=== PATIENT | male | born 1960 | race Caucasian/White ===

== ENCOUNTER → 2017-10-20 | Outpatient (CLI) | payer BC ==
--- NOTE | 2017-10-20 10:25 | US ---
EXAMINATION TYPE: US liver DATE OF EXAM: 10/20/2017 COMPARISON: NONE CLINICAL HISTORY: R74.8 Elevated liver. No pain, abn labs, NPO EXAM MEASUREMENTS: Liver Length: 15.7 cm Gallbladder Wall: 0.1 cm Right Kidney: 12.3 x 5.8 x 6.0 cm Limited exam due to patient body habitus Pancreas: Unremarkable. Tail obscured by overlying bowel gas Liver: Hepatic echotexture is hyperechoic with diminished visualization of the portal triads. This l imits evaluation for hepatic masses. Gallbladder: wnl Evidence for sonographic Carranza's sign: neg CBD: Obscured by overlying bowel gas Right Kidney: wnl IMPRESSION: 1. Limited exam due to patient body habitus. No evidence for cholelithiasis or acute cholecystitis al though the common bile duct is obscured by bowel gas. 2. Hyperechoic hepatic echotexture most commonly relates to hepatic steatosis.
== END | disposition home or self-care (01) ==
LOC: RADUSWWP 08:09
PROVIDERS: ATTEND Family Medicine
DX: R93.2 Abnormal findings on diagnostic imaging of liver and biliary tract (principal)
CPT/HCPCS: 76705

== ENCOUNTER → 2018-05-11 | Outpatient (CLI) | payer BC ==
--- NOTE | 2018-05-11 12:23 | CT ---
EXAMINATION TYPE: CT abdomen pelvis wo con DATE OF EXAM: 05/11/2018 COMPARISON: HISTORY: Left flank pain with difficulty urinating CT DLP: 1302.6 mGycm Automated exposure control for dose reduction was used. TECHNIQUE: Helical acquisition of images was performed from the lung bases through the pelvis. FINDINGS: LUNG BASES: No significant abnormality is appreciated. LIVER/GB: No significant abnormality is appreciated. PANCREAS: No significant abnormality is seen. SPLEEN: No significant abnormality is seen. ADRENALS: No significant abnormality is seen. KIDNEYS: No nephrolithiasis. There is mild left hydronephrosis. No renal stone or ureteral stone. No bladder calculi. Correlate for infection or recently passed stone URINARY BLADDER: No significant abnormality is seen. ADENOPATHY: None visualized. OSSEOUS STRUCTURES: Severe degenerative disc disease with vacuum disc L5-S1 grade 1 anterolisthesis. Bilateral spondylolysis of L5. BOWEL: Diverticulosis of the colon. Appendix normal. OTHER: Prostate is prominent in size with calcification. Fat-containing periumbilical hernia. Atheros clerotic change of the aorta. IMPRESSION: MILD LEFT HYDRONEPHROSIS WITH NO EVIDENCE OF RENAL OR URETERAL CALCULUS. CORRELATE FOR INFECTION OR R ECENTLY PASSED CALCULUS. COLONIC DIVERTICULOSIS.
== END | disposition home or self-care (01) ==
LOC: RADCTMAIN 11:59
PROVIDERS: ATTEND Physician Assistant
DX: N13.30 Unspecified hydronephrosis (principal); K57.30 Diverticulosis of large intestine without perforation or abscess without bleeding
CPT/HCPCS: 74176

== ENCOUNTER → 2020-04-04 | Outpatient (CLI) | payer BC ==
--- NOTE | 2020-04-04 09:57 | US ---
EXAMINATION TYPE: US prostate transrectal DATE OF EXAM: 04/04/2020 COMPARISON: NONE CLINICAL HISTORY: N41.1 Chronic prostatitis. Chronic prostatitis, pt states high PSA however lab valu es not available at time of exam This examination was performed using the transrectal probe. EXAM MEASUREMENTS: Gland Size: 5.0 x 4.2 x 5.5 Volume: 59 Predicted PSA: 7.1 Actual PSA (if available):Unknown Enlarged, heterogeneous prostate/ No definite mass visualized within periphery IMPRESSION: No suspicious appearing lesion noted. Correlate with actual PSA. Predicted PSA = volume x 0.12 ng/ml Calculated Volume = 0.5236 x L x W x H
== END | disposition home or self-care (01) ==
LOC: RADUSWWP 08:13
PROVIDERS: ATTEND Family Medicine
DX: N41.1 Chronic prostatitis (principal)
CPT/HCPCS: 76872

== ENCOUNTER → 2020-08-23 | Outpatient (CLI) | payer OTHER ==
--- NOTE | 2020-08-23 15:55 | US ---
EXAMINATION TYPE: US venous doppler duplex LE RT DATE OF EXAM: 08/23/2020 3:31 PM COMPARISON: NONE CLINICAL HISTORY: Loose body R knee M23.41, M23.91 Internal derangem. SIDE PERFORMED: right TECHNIQUE: The lower extremity deep venous system is examined utilizing real time linear array sonog ishan with graded compression, doppler sonography and color-flow sonography. VESSELS IMAGED: Common Femoral Vein Deep Femoral Vein Greater Saphenous Vein * Femoral Vein Popliteal Vein Small Saphenous Vein * Proximal Calf Veins (* superficial vessels) Right Leg: Negative for DVT Attempted to call 's office at time of exam, there was no answer. IMPRESSION: 1. Right lower extremity ultrasound negative for deep venous thrombosis.
== END | disposition home or self-care (01) ==
LOC: RADUSWWP 15:05
PROVIDERS: ATTEND Orthopaedic Surgery
DX: I80.3 Phlebitis and thrombophlebitis of lower extremities, unspecified (principal); M17.11 Unilateral primary osteoarthritis, right knee; M23.41 Loose body in knee, right knee; M23.91 Unspecified internal derangement of right knee; M25.561 Pain in right knee

== ENCOUNTER → 2020-09-07 | Outpatient (CLI) | payer OTHER ==
[2020-09-07 13:20] LABS: HCT 47.2 % (39.0-53.0); HGB 16.2 gm/dL (13.0-17.5); MCHC 34.4 g/dL (31.0-37.0); Mean Platelet Volume 7.9; Platelet Count 239 k/uL (150-450); RBC 4.91 m/uL (4.30-5.90); RDW 12.6 % (11.5-15.5); WBC 6.2 k/uL (3.8-10.6)
[2020-09-07 13:21] LABS: Appearance,Urine Clear (Clear); Bilirubin,Urine Negative (Negative); Blood,Urine Negative (Negative); Color,Urine Yellow; Glucose,Urine (UA) Negative (Negative); Ketones,Urine Negative (Negative); Leukocyte Esterase,Urine Negative (Negative); Nitrite,Urine Negative (Negative); PH, Urine 5.5 (5.0-8.0); Protein,Urine Negative (Negative); Specific Gravity,Urine 1.017 (1.001-1.035); Urobilinogen,Urine <2.0 mg/dL (<2.0)
[2020-09-07 13:28] LABS: INR 0.9 (<1.2); Partial Thromboplastin Time 23.7 sec (22.0-30.0); Prothrombin Time 9.9 sec (9.0-12.0)
[2020-09-07 13:30] LABS: ALT 43 U/L (4-49); AST 30 U/L (17-59); African American GFR (CKD) >90 (>60 ml/min/1.73 sqM); Albumin 4.2 g/dL (3.5-5.0); Alkaline Phosphatase 72 U/L (38-126); Anion Gap 4 mmol/L; Blood Urea Nitrogen 15 mg/dL (9-20); Calcium 9.3 mg/dL (8.4-10.2); Carbon Dioxide 30 mmol/L (22-30); Chloride 103 mmol/L (98-107); Glucose 93 mg/dL (74-99); Non-African American GFR(CKD) >90 (>60 ml/min/1.73 sqM); Potassium 4.1 mmol/L (3.5-5.1); Sodium 137 mmol/L (137-145); Total Bilirubin 0.9 mg/dL (0.2-1.3)
== END | disposition home or self-care (01) ==
LOC: LABPAT 11:34
PROVIDERS: ATTEND Orthopaedic Surgery
DX: Z01.818 Encounter for other preprocedural examination (principal); M17.11 Unilateral primary osteoarthritis, right knee
CPT/HCPCS: 36415; 80053; 81003; 85027; 85610; 85730; 87070; 93005

== ENCOUNTER 2020-09-24 10:43 | Day surgery (SDC) | payer OTHER ==
[2020-09-18 15:46] VITALS: BMI 35.2
[~2020-09-24 10:43] MED LIST: ACETAMINOPHEN TAB 500 MG TAB PO PRN; LACTATED RINGERS 1,000 ML IV SCH; LIDOCAINE 1% (10MG/ML) FOR IV START INTRADERMA PRN; MELOXICAM 7.5 MG TAB PO PRN; ONDANSETRON 4 MG/2 ML VIAL IVP PRN; ROPIVACAINE/EPI/CLONIDINE/KET 50 ML SYRINGE MISCELLANE PRN; TRANEXAMIC ACID 1,000 MG in SODIUM CHLORIDE 0.9% 100 ML IVPB PRN
[2020-09-24] MEDS ORDERED: MIDAZOLAM 2 MG/2 ML VIAL IV ONE (11:24)
[2020-09-24] MEDS ORDERED: ROPIVACAINE 0.2%-NS ON-Q PUMP 1,090 MG, EMPTY PAIN BALL 1 EACH MISCELLANE PRN (12:30)
--- NOTE | 2020-09-24 12:31 | P.ANPRN ---
Procedure Note - Anesthesia - Nerve Block Performed Right Adductor Canal Infusion Time Out Performed: Yes (1123) Date of Procedure: 09/24/20 Procedure Start Time: :24 Procedure Stop Time: :31 Location of Patient: PreOp Indication: Acute Post-Operative Pain, Requested by Surgeon Specifically requested for management of pain by DrMary: Hunter Wood Sedation Type: Sedate with meaningful contact maintained Preparation: Sterile Prep Position: Supine Catheter Depth at Skin (cm): 9 Catheter: Indwelling Needle Types: Pajunk Needle Gauge: 21 Ultrasound used to visualize needle placement: Yes Ultrasound used to observe medication spread: Yes Injectate: 0.5% Ropivacaine (see comment for volume) (20cc) Blood Aspirated: No Pain Paresthesia on Injection Noted: No Resistance on Injection: Normal Image Stored and Saved: Yes Events: Uneventful and Well Tolerated
[2020-09-24] MEDS ORDERED: HYDROmorphone 0.2 MG/1 ML SYRINGE IVP PRN (13:09)
[2020-09-24] MEDS ORDERED: TEMAZEPAM 15 MG CAP PO PRN (13:09)
[2020-09-24] MEDS ORDERED: hydrOXYzine pamoate 25 MG CAP PO PRN (13:09)
[2020-09-24] MEDS ORDERED: HYDROcodone/APAP 10-325MG 1 EACH TAB PO PRN (13:09)
[2020-09-24] MEDS ORDERED: MAGNESIUM HYDROXIDE 2,400 MG/10 ML CUP PO PRN (13:09)
[2020-09-24] MEDS ORDERED: HYDROmorphone 0.5 MG/0.5 ML SYRINGE IVP PRN (13:09)
[2020-09-24] MEDS ORDERED: bisacodyL 10 MG SUPP RECTAL PRN (13:09)
[2020-09-24] MEDS ORDERED: ONDANSETRON 4 MG/2 ML VIAL IVP PRN (13:09)
[2020-09-24] MEDS ORDERED: NA PHOS,M-B/NA PHOS,DI-BA 133 ML ENEMA RECTAL PRN (13:09)
[2020-09-24] MEDS ORDERED: HYDROmorphone 1 MG/ML 1 ML SYRINGE IVP PRN (13:09)
[2020-09-24] MEDS ORDERED: NALOXONE 0.4 MG/ML 1 ML VIAL IV PRN (13:09)
[2020-09-24] MEDS ORDERED: HYDROmorphone (PF) 1 MG/ML ONE (13:11)
[2020-09-24] MEDS ORDERED: fentaNYL (PF) 50 MCG/ML 2 ML AMP ONE (13:11)
[2020-09-24] MEDS ORDERED: TRANEXAMIC ACID 1,000 MG/10 ML VIAL ONE (13:11)
[2020-09-24] MEDS ORDERED: PROPOFOL 10 MG/ML 20 ML VIAL IV ONE (13:11)
[2020-09-24] MEDS ORDERED: LIDOCAINE 1% INJ 10MG/ML (20 ML MDV) ONE (13:11)
[2020-09-24] MEDS ORDERED: MIDAZOLAM 2 MG/2 ML VIAL ONE (13:11)
[2020-09-24] MEDS ORDERED: KETAMINE 10 MG/ML 20 ML VIAL ONE (13:11)
[2020-09-24] MEDS ORDERED: SODIUM CHLORIDE 0.9% 100 ML BAG ONE (13:11)
[2020-09-24] MEDS ORDERED: NEOSTIGMINE 1 MG/ML 10 ML VIAL ONE (13:11)
[2020-09-24] MEDS ORDERED: SUCCINYLCHOLINE CHLORIDE 100 MG/5 ML SYR IV ONE (13:11)
[2020-09-24] MEDS ORDERED: ROCURONIUM 10 MG/ML (5 ML VIAL) IV ONE (13:11)
[2020-09-24] MEDS ORDERED: hydrALAZINE HCL 20 MG/ML 1 ML VIAL ONE (13:11)
[2020-09-24] MEDS ORDERED: GLYCOPYRROLATE 0.2 MG/ML 2 ML VIAL ONE (13:11)
[2020-09-24] MEDS ORDERED: METOPROLOL TARTRATE 5 MG/5 ML VIAL IVP ONE (13:11)
[2020-09-24] MEDS ORDERED: LACTATED RINGERS 1,000 ML IV SCH (13:15)
[2020-09-24] MEDS ORDERED: ceFAZolin 3,000 MG in SODIUM CHLORIDE 0.9% IRRIGATIO 3,000 ML IRRIGATION ONE (13:16)
[2020-09-24] MEDS ORDERED: LACTATED RINGERS 1,000 ML IV ONE ×3 (14:55→16:40)
--- NOTE | 2020-09-24 15:13 | P.OP ---
Date of Procedure: 09/24/20 Procedure(s) Performed: PREOPERATIVE DIAGNOSIS: Right knee severe osteoarthritis with genu varum POSTOPERATIVE DIAGNOSIS: Right knee severe osteoarthritis with genu varum OPERATION: Right knee cemented total replacement arthroplasty. ANESTHESIA: Spinal ESTIMATED BLOOD LOSS: 100 ml. DOUBLE BACK OPERATOR: Hailee Barr PA-C (assistance with: patient positioning, retraction, exposure, hemostasis, leg positioning, implantation, irrigation, closure, dressing) COMPLICATIONS: None apparent. COMPONENTS IMPLANTED: Journey II BCS total knee system from [employer], [facility] preoperative computer templating INDICATIONS: Mr. Mcgee is a 60 year old male with a history of right knee osteoarthritis. The patient's knee is end-stage, and conservative management has failed. The operation of knee replacement has been discussed at length in the office, as well as potential risks and complications. These are inclusive of, but not limited to: bleeding, infection, scarring, discomfort, blood vessel and nerve damage, need for further surgery, failure to relieve symptoms, persistence, recurrence, or worsening of problems, loosening, dislocation, wear, blood clot, pulmonary embolism, , gait dysfunction, stiffness, and other risks as discussed in the office. The patient elects to proceed and the consent form has been signed. PROCEDURE: The patient was taken to the operating room and positioned on the operating room table in the supine position. Anesthesia was initiated. Care was taken to make sure that all pressure points were adequately padded. The operative lower extremity was prepped and draped in the usual aseptic fashion using ChloraPrep. Ioban drape was used for the case and the patient received intravenous antibiotics within one hour of the incision. A pneumotourniquet and leg lopez were used for the case. The limb was exsanguinated with an Esmarch bandage and the tourniquet was inflated to 250 mmHg. Time-out was called confirming the patient's identity, side, procedure and administration of antibiotics and tranexamic acid. The incision was then created midline directly over the right knee, carried down through skin and into the subcutaneous tissues and down to fascia. Full thickness subcutaneous medial flap was developed. Medial parapatellar arthrotomy was performed and the interior of the knee was inspected. There was end-stage osteoarthritis of the knee with a mild to moderate genu valgum type deformity. The fat pad was excised and proximal medial release on the tibia was completed using meticulous dissection and a curved osteotome. The anterior cruciate ligament was taken down. Note was made of significant attrition of the anterior and significant degenerative appearance of the cruciate ligaments. The exposure was excellent however, there appeared to be a venous tourniquet effect and therefore the tourniquet was deflated and reinflated prior to cementation. The knee was flexed 90 degrees and the patella was everted. The [employer] pre- made distal cutting block was attached and pinned into position. The planned cut was analyzed visually and with the alignment real and found to be satisfactory without the need for any adjustment. The oscillating saw was then used to make the distal femoral cut and make the alignment holes for the 5 in 1 block. This cut was confirmed to be flat with the flat end of an osteotome. The 5 in 1 block was then used to create the anterior posterior condylar resections and the chamfer cuts. The retractors were placed around the tibia and the tibial surface was addressed. The [employer] pre-made guide was placed onto the exposed tibial surface and pinned into position to renzo the rotational alignment. The alignment of the guide was checked for depth of plannned resection, slope, and varus valgus. Guide was confirmed to be in good position and the tibial cut was then created with protection of the posterior neurovascular structures and the collateral ligaments. The tibial cut surface was removed and sized. Spacer block technique was then used to confirm that the flexion and extension g aps were equal. Soft tissue releases and adjustment of the tibial and/or femoral cuts were made, as necessary, until the gaps were equal. This included release of the posterior cruciate ligament, which was excessively tight in this patient. Prior to placing trial components, anesthetic solution consisting of ropivicaine with epinephrine, ketorolac, and clonidine was injected carefully and methodically in a grid pattern using aspiration technique into the soft tissue around the knee circumferentially, starting with the deeper tissues first and progressing to fascia, and then finally the skin/subcutaneous tissue. Particular care was taken when injecting the posterior capsule, with avoidance of the midline posterior area. The trial components were inserted. The tibial tray was allowed to self center and the patella was noted to track very well. The position of the tibial component was marked and noted to be nearly exactly aligned with the pre-drilled holes from the [employer] guide. The tibia was then finished for a stemmed tibial component. Patellar resurfacing was performed using a reamer. The size of the required patellar component was estimated and the patellar surface was then reamed down to a residual thickness which would recreate the [place] thickness with the component. The exact placement of the patellar component was adjusted for position based on preoperative x-rays and intraoperative findings. Trial components were removed and the limb was exsanguinated with an Esmarch bandage. The tourniquet was inflated to 300 mmHg. The cut surfaces of the bone were pulse lavaged thoroughly and dried. Cement was mixed on the back table and applied to the final components. Cement was then applied to the tibial surface and pressurized into the surface using finger pressurization technique. The tibial component was then applied and excess cement was removed after it was impacted securely and noted to be flush with the cut surface. In similar fashion, the cement was applied to the cut femoral surface, pressurized in using finger pressurization and the component was impacted into place. Excess cement was removed. The polyethylene spacer was then implanted and locked into position. The patellar component was then applied in similar technique and a patellar clamp was used to hold the patella in place as the cement hardened. Once the cement had fully hardened, the knee was reinspected. Any other cement extrusion was removed and final kinematic testing showed range of motion from 0 to 130 degrees with excellent stability, both medially and laterally and appropriate alignment of the leg. Patellar tracking was excellent. The knee was then thoroughly pulse lavaged with normal saline. The tourniquet was deflated and hemostasis was obtained with electrocautery and IV tranexamic acid, 1 g given at the start of the operation and 1 g at the start of closure. Total tourniquet time for the case was approximately 30 minutes. Closure was with #2 Ethibond in the fascia/capsule and supplemented with #2 Quill, 2-0 Vicryl suture was used for the subcutaneous tissues and 3-0 Quill for the skin. Dermabond/Steri-Strips were then applied. A lightly compressive dressing was applied using Webril and an Robert wrap. The patient was then transferred to stretcher and taken to the recovery room in stable condition. Sponge and needle counts were correct.
[2020-09-24] MEDS: HYDROmorphone 0.5 MG/0.5 ML SYRINGE IVP PRN ×2 (15:30→15:47)
[2020-09-24] MEDS ORDERED: LABETALOL SYRINGE 5 MG/ML IVP ONE ×2 (15:50→16:00)
--- NOTE | 2020-09-24 15:53 | XR ---
EXAMINATION TYPE: XR knee limited RT DATE OF EXAM: 09/24/2020 COMPARISON: None HISTORY: Postop knee TECHNIQUE: Three-view right knee FINDINGS: Tibial and femoral components of in place. No acute fractures or dislocations are evident. Soft tissue postsurgical changes are noted. No joint effusion is evident. IMPRESSION: 1. No acute fracture post right knee replacement
[2020-09-24 16:49] VITALS: RESP 16
[2020-09-24] MEDS ORDERED: ASPIRIN 81 MG PO SCH (21:00)
[2020-09-24] MEDS ORDERED: SENNOSIDES-DOCUSATE SODIUM 1 EACH TAB PO SCH (21:00)
[2020-09-24] MEDS ORDERED: LATANOPROST 0.005% OPHTH DROPS 2.5 ML BTL BOTH EYES SCH (21:15)
[2020-09-24 22:02] VITALS: BP 152/90; PULSE 78; TEMP 97.6
[2020-09-25] MEDS ORDERED: LISINOPRIL-HCTZ 20-12.5 MG 1 EACH TAB PO SCH (09:00)
[2020-09-25] MEDS ORDERED: MELOXICAM 7.5 MG TAB PO SCH (09:00)
== END 2020-09-24 22:16 | disposition home or self-care (01) ==
LOC: OR 10:43 → 4SSUR 15:38 → OR 22:16
PROVIDERS: ATTEND Orthopaedic Surgery
DX: M17.11 Unilateral primary osteoarthritis, right knee (principal); M21.061 Valgus deformity, not elsewhere classified, right knee; I10 Essential (primary) hypertension; Z87.891 Personal history of nicotine dependence; Z79.899 Other long term (current) drug therapy
CPT/HCPCS: 64448; 76942; 73560; 27447; C1713; C1776; J2250; J0360; J2710; J0690 ×2; J2405; J2001; J3010; J1170 ×2; J0330; J2704; J2795; 88300

== ENCOUNTER → 2021-08-14 | Outpatient (CLI) | payer OTHER ==
--- NOTE | 2021-08-14 16:09 | CT ---
EXAMINATION TYPE: CT abdomen pelvis w con DATE OF EXAM: 08/14/2021 COMPARISON: 05/11/2018, ultrasound 08/12/2021 HISTORY: abdominal pain, renal mass CT DLP: 1847 mGycm Automated exposure control for dose reduction was used. CONTRAST: CT scan of the abdomen pelvis is performed with IV Contrast, patient injected with 100 mL of Isovue 3 00. FINDINGS- Small hiatal hernia. Lung bases are clear. Lobulation involving the mid torsion of the right kidney s table dating back to 2018 likely representing a dromedary hump with tiny 3 mm hypodensity statistical ly related to tiny additional cyst. No hydronephrosis or nephrolithiasis. Bowel gas pattern nonspecific. There is changes of diverticulosis but no CT evidence of diverticuliti s. Prostate is enlarged with calcification. Bladder is limited due to incomplete distention. No free fluid or free air. Hypertrophic and degenerative changes of the spine. Grade 1 anterolisthesis of L5 on S1. IMPRESSION- 1. 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 Delayed imaging is not carried into the pelvis and therefore whether or not there is presence of an ectopic insertion of the ureter is unable to be determined.
== END | disposition home or self-care (01) ==
LOC: RADCTMAIN 13:33
PROVIDERS: ATTEND Family Medicine
DX: N28.89 Other specified disorders of kidney and ureter (principal)
CPT/HCPCS: 74177; Q9967

== ENCOUNTER 2022-05-25 11:48 | Inpatient (IN) | payer OTHER ==
[2022-05-25] MEDS ORDERED: SODIUM CHLORIDE 0.9% 1,000 ML IV STA (12:20)
[2022-05-25] MEDS ORDERED: ACETAMINOPHEN TAB 500 MG TAB PO STA (12:20)
--- NOTE | 2022-05-25 12:22 | ED ---
General Adult HPI - General Chief complaint: Abdominal Pain Stated complaint: fever/chills, poss infection Time Seen by Provider: 05/25/22 12:06 Source: patient Mode of arrival: ambulatory Limitations: no limitations - History of Present Illness Initial comments: Dictation was produced using [employer] dictation software. please excuse any grammatical, word or spelling errors. Chief Complaint: 62-year-old male past medical history of chronic prostate infection presents to the ER for fever, nausea, vomiting. History of Present Illness: 62-year-old male who states that over the last 24-48 hours she has been feeling worse. He describes his symptoms as weakness, constitutional symptoms, fever. Patient is dealing with a bout of prostatitis. Patient states that he's been having bouts of intermittent prostatitis since 2017. His urine infection has been managed by his primary care doctor. He's been on ciprofloxacin for several weeks now. Patient also having some mild runny nose. No sore throat. He does have a dry cough. He denies any abdominal pain. Denies any history of abdominal surgery. No diarrhea. Denies any urin hamilton symptoms at this time. The ROS documented in this emergency department record has been reviewed and confirmed by me. Those systems with pertinent positive or negative responses have been documented in the HPI. All other systems are other negative and/or noncontributory. PHYSICAL EXAM: General Impression: Alert and oriented x3, not in acute distress HEENT: Normocephalic atraumatic, extra-ocular movements intact, pupils equal and reactive to light bilaterally, mucous membranes moist. Cardiovascular: Heart regular rate and rhythm Chest: Able to complete full sentences, no retractions, no tachypnea Abdomen: abdomen soft, non-tender, non-distended, no organomegaly Musculoskeletal: Pulses present and equal in all extremities, no peripheral edema Motor: no focal deficits noted Neurological: CN II-XII grossly intact, no focal motor or sensory deficits noted Skin: Intact with no visualized rashes Psych: Normal affect and mood ED course: 62-year-old male presents emergency department for monitor days of constitutional symptoms. He is dealing with a complex urinary infection that he describes as prostatitis. Vital signs upon arrival shows temperature 100.6, rest of vital signs within acceptable limits. Abdomen evaluation obtained. No leukocytosis. Metabolic panel is within acceptable limits. Urinalysis positive for UTI with blood cell count of 35. Pending viral panel. Patient reevaluated bedside states he feels improved after having given Tylenol. He does have some flank pain. Concerns of pyelonephritis. Given patient's failed outpatient treatment he'll be admitted with consultation to urology infectious disease. Admitted to [facility]. - Related Data Home Medications Medication Instructions Recorded Confirmed Lisinopril-Hctz 20-12.5 mg 1 tab PO QAM 09/18/20 09/24/20 [Zestoretic 20-12.5] Travoprost [Travatan Z 0.004%] 1 drop BOTH EYES HS 09/18/20 09/24/20 Allergies Allergy/AdvReac Type Severity Reaction Status Date / Time No Known Allergies Allergy Verified 05/25/22 14:13 Review of Systems ROS Statement: Those systems with pertinent positive or pertinent negative responses have been documented in the HPI. ROS Other: All systems not noted in ROS Statement are negative. Past Medical History Past Medical History: Hypertension Additional Past Medical History / Comment(s): Prostate History of Any Multi-Drug Resistant Organisms: None Reported Past Surgical History: Orthopedic Surgery Past Psychological History: No Psychological Hx Reported Smoking Status: Never smoker Past Alcohol Use History: Occasional Past Drug Use History: Marijuana General Exam Limitations: no limitations Course Vital Signs 05/25/22 05/25/22 12:05 13:23 Temperature 100.6 F H Pulse Rate 87 86 Respiratory 24 18 Rate Blood Pressure 157/94 O2 Sat by Pulse 99 97 Oximetry Medical Decision Making - Lab Data Result diagrams: 05/25/22 13:16 05/25/22 13:16 Lab Results 05/25/22 05/25/22 05/25/22 Range/Units 13:16 13:16 13:16 WBC 10.3 (3.8-10.6) k/uL RBC 4.08 L (4.30-5.90) m/uL Hgb 13.6 (13.0-17.5) gm/dL Hct 38.1 L (39.0-53.0) % MCV 93.3 (80.0-100.0) fL MCH 33.3 (25.0-35.0) pg MCHC 35.7 (31.0-37.0) g/dL RDW 12.5 (11.5-15.5) % Plt Count 197 (150-450) k/uL MPV 8.3 Neutrophils % 84 % Lymphocytes % 6 % Monocytes % 8 % Eosinophils % 1 % Basophils % 0 % Neutrophils # 8.7 H (1.3-7.7) k/uL Lymphocytes # 0.6 L (1.0-4.8) k/uL Monocytes # 0.8 (0-1.0) k/uL Eosinophils # 0.1 (0-0.7) k/uL Basophils # 0.0 (0-0.2) k/uL Sodium 134 L (137-145) mmol/L Potassium 3.5 (3.5-5.1) mmol/L Chloride 100 (98-107) mmol/L Carbon Dioxide 25 (22-30) mmol/L Anion Gap 9 mmol/L BUN 14 (9-20) mg/dL Creatinine 0.69 (0.66-1.25) mg/dL Est GFR (CKD-EPI)AfAm >90 (>60 ml/min/1.73 sqM) Est GFR (CKD-EPI)NonAf >90 (>60 ml/min/1.73 sqM) Glucose 164 H (74-99) mg/dL Plasma Lactic Acid Mark 1.1 (0.7-2.0) mmol/L Calcium 8.0 L (8.4-10.2) mg/dL Magnesium 1.9 (1.6-2.3) mg/dL Total Bilirubin 0.6 (0.2-1.3) mg/dL AST 22 (17-59) U/L ALT 31 (4-49) U/L Alkaline Phosphatase 71 (38-126) U/L Total Protein 5.9 L (6.3-8.2) g/dL Albumin 3.6 (3.5-5.0) g/dL Lipase 73 (23-300) U/L Urine Color Urine Appearance (Clear) Urine pH (5.0-8.0) Ur Specific [place] (1.001-1.035) Urine Protein (Negative) Urine Glucose (UA) (Negative) Urine Ketones (Negative) Urine Blood (Negative) Urine Nitrite (Negative) Urine Bilirubin (Negative) Urine Urobilinogen (<2.0) mg/dL Ur Leukocyte Esterase (Negative) Urine WBC (0-5) /hpf Ur Squamous Epith Cells (0-4) /hpf Amorphous Sediment (None) /hpf Urine Bacteria (None) /hpf Urine Mucus (None) /hpf 05/25/22 Range/Units 13:25 WBC (3.8-10.6) k/uL RBC (4.30-5.90) m/uL Hgb (13.0-17.5) gm/dL Hct (39.0-53.0) % MCV (80.0-100.0) fL MCH (25.0-35.0) pg MCHC (31.0-37.0) g/dL RDW (11.5-15.5) % Plt Count (150-450) k/uL MPV Neutrophils % % Lymphocytes % % Monocytes % % Eosinophils % % Basophils % % Neutrophils # (1.3-7.7) k/uL Lymphocytes # (1.0-4.8) k/uL Monocytes # (0-1.0) k/uL Eosinophils # (0-0.7) k/uL Basophils # (0-0.2) k/uL Sodium (137-145) mmol/L Potassium (3.5-5.1) mmol/L Chloride (98-107) mmol/L Carbon Dioxide (22-30) mmol/L Anion Gap mmol/L BUN (9-20) mg/dL Creatinine (0.66-1.25) mg/dL Est GFR (CKD-EPI)AfAm (>60 ml/min/1.73 sqM) Est GFR (CKD-EPI)NonAf (>60 ml/min/1.73 sqM) Glucose (74-99) mg/dL Plasma Lactic Acid Mark (0.7-2.0) mmol/L Calcium (8.4-10.2) mg/dL Magnesium (1.6-2.3) mg/dL Total Bilirubin (0.2-1.3) mg/dL AST (17-59) U/L ALT (4-49) U/L Alkaline Phosphatase (38-126) U/L Total Protein (6.3-8.2) g/dL Albumin (3.5-5.0) g/dL Lipase (23-300) U/L Urine Color Yellow Urine Appearance Clear (Clear) Urine pH 5.0 (5.0-8.0) Ur Specific [place] 1.024 (1.001-1.035) Urine Protein 1+ H (Negative) Urine Glucose (UA) Negative (Negative) Urine Ketones Negative (Negative) Urine Blood Negative (Negative) Urine Nitrite Negative (Negative) Urine Bilirubin Negative (Negative) Urine Urobilinogen <2.0 (<2.0) mg/dL Ur Leukocyte Esterase Moderate H (Negative) Urine WBC 35 H (0-5) /hpf Ur Squamous Epith Cells 1 (0-4) /hpf Amorphous Sediment Rare H (None) /hpf Urine Bacteria Rare H (None) /hpf Urine Mucus Few H (None) /hpf Disposition Clinical Impression: UTI (urinary tract infection), Pyelonephritis Disposition: ADMITTED IP TO THIS HOSP Condition: Fair Referrals: Garfield Moss MD [Primary Care Provider] - 1-2 days Decision Time: 14:15
[2022-05-25 13:31] LABS: Basophils % (A) 0 %; Eosinophils # (A) 0.1 k/uL (0-0.7); Eosinophils % (A) 1 %; HCT 38.1 % (39.0-53.0); HGB 13.6 gm/dL (13.0-17.5); Lymphocytes # (A) 0.6 k/uL (1.0-4.8); Lymphocytes % (A) 6 %; MCH 33.3 pg (25.0-35.0); MCHC 35.7 g/dL (31.0-37.0); MCV 93.3 fL (80.0-100.0); Mean Platelet Volume 8.3; Monocytes # (A) 0.8 k/uL (0-1.0); Monocytes % (A) 8 %; Neutrophils # (A) 8.7 k/uL (1.3-7.7); Neutrophils % (A) 84 %; Platelet Count 197 k/uL (150-450); RBC 4.08 m/uL (4.30-5.90); RDW 12.5 % (11.5-15.5); WBC 10.3 k/uL (3.8-10.6)
[2022-05-25 13:45] LABS: ALT 31 U/L (4-49); AST 22 U/L (17-59); African American GFR (CKD) >90 (>60 ml/min/1.73 sqM); Albumin 3.6 g/dL (3.5-5.0); Alkaline Phosphatase 71 U/L (38-126); Anion Gap 9 mmol/L; Blood Urea Nitrogen 14 mg/dL (9-20); Carbon Dioxide 25 mmol/L (22-30); Chloride 100 mmol/L (98-107); Glucose 164 mg/dL (74-99); Lipase 73 U/L (23-300); Magnesium 1.9 mg/dL (1.6-2.3); Non-African American GFR(CKD) >90 (>60 ml/min/1.73 sqM); Potassium 3.5 mmol/L (3.5-5.1); Sodium 134 mmol/L (137-145); Total Bilirubin 0.6 mg/dL (0.2-1.3); Total Protein 5.9 g/dL (6.3-8.2)
[2022-05-25 13:47] LABS: Amorphous Sediment,Urine Rare /hpf; Appearance,Urine Clear (Clear); Bacteria,Urine Rare /hpf; Bilirubin,Urine Negative (Negative); Blood,Urine Negative (Negative); Color,Urine Yellow; Glucose,Urine (UA) Negative (Negative); Ketones,Urine Negative (Negative); Leukocyte Esterase,Urine Moderate (Negative); Mucus,Urine Few /hpf; Nitrite,Urine Negative (Negative); Protein,Urine 1+ (Negative); Specific Gravity,Urine 1.024 (1.001-1.035); Squamous Epithelial Cell,Urine 1 /hpf (0-4); Urobilinogen,Urine <2.0 mg/dL (<2.0); WBC,Urine 35 /hpf (0-5)
[2022-05-25] MEDS ORDERED: cefTRIAXone IN SWFI 1,000 MG/10 ML SYRINGE IVP STA (14:08)
[2022-05-25] MEDS ORDERED: NALOXONE 0.4 MG/ML 1 ML VIAL IV PRN (14:12)
[2022-05-25] MEDS ORDERED: ONDANSETRON 4 MG/2 ML VIAL IVP PRN (14:12)
[2022-05-25] MEDS ORDERED: LEVOFLOXACIN 750MG-D5W PMX 750 MG in DEXTROSE/WATER 1 150ML.BAG IVPB ONE (14:30)
[2022-05-25] MEDS: SODIUM CHLORIDE 0.9% 1,000 ML IV SCH (14:34)
[2022-05-25] MEDS ORDERED: TAMSULOSIN 0.4 MG CAP.ER.24H PO STA (14:48)
--- NOTE | 2022-05-25 14:52 | P.HPIM ---
History of Present Illness H&P Date: 05/25/22 History of Presenting Illness: Patient is a very pleasant 62-year-old male with a past medical history of recurrent prostatitis since 2017 and hypertension. Patient reports he has been under treatment of [facility] and by his primary care provider Dr. Moss and recently started back on ciprofloxacin almost 3 weeks ago secondary to recurrent chronic bacterial prostatitis. Patient reports despite treatment for recurrent infection his symptoms of urinary retention and inability to initiate a stream have significantly worsened. He presented to the emergency department today with a chief complaint of fever, nausea, and vomiting along with his urinary complaints. In addition pt reports increased lower back pain (consistent with his recurrent bacterial prostatitis episodes), generalized fatigue and body aches. He denies having any dizziness, lightheade dness, chest pain, palpitations, abdominal pain or discomfort, suprapubic pain, or flank pain Upon arrival to our facility patient had oral temp of 100.6F. CBC showing no significant abnormalities with WBC count of 10.3. CMP revealed mild hyponatremia with sodium of 134 otherwise no abnormalities. Lactic acid 1.1. Urinalysis was positive for infection with 35 urine WBCs. Influenza A, influenza B, RSV, and Covid PCR was negative. Urine culture sent for analysis and patient was given 1 dose of Rocephin in the emergency department. Patient being admitted under our services with consultation to urology and infectious disease. Review of systems: Pertinent positives and negatives as discussed in HPI, a complete review of systems was performed and all other systems are negative. Physical exam: Vital signs reviewed and stable. General: Nontoxic, no distress and appears stated age. Obese. Derm: Skin warm and dry, normal coloration for ethnicity. Head: Atraumatic, normocephalic and symmetric. Eyes: EOMs intact, no lid lag, and anicteric sclera Mouth: no lip lesions, mucus membranes moist Cardiovascular: regular rate and rhythm with normal S1S2, no murmur, positive posterior tibial pulses bilaterally, and cap refill < 2 seconds. Lungs: Respirations even, regular, and unlabored on room air. Lungs CTA bilaterally, no rhonchi, no rales, no wheezing, and no accessory muscle usage. Abdominal: soft, nontender to palpation, no guarding, no appreciable organomegaly. No CVA tenderness. Ext: ROM intact. No gross muscle atrophy, no edema, no contractures Neuro: Speech clear, face symmetrical and CN II-XII grossly intact with no noted focal neuro deficits Psych: Alert and oriented to person, place, time, and situation. Appropriate and pleasant affect. Assessment and Plan of Care: Recurrent chronic bacterial prostatitis Urinary tract infection -IV antibiotics: Levaquin 750 mg daily -Consult to urology -Consult infectious disease -Follow up on urine culture and sensitivity report -Bladder management with bladder scanning as needed to monitor for postvoid residual -Increase Flomax 0.8 mg daily pending further recommendations from urology -Tylenol as needed for pain/fever Hypertension -Monitor vital signs and continue daily medication regimen with lisinopril/HCTZ CODE STATUS: Full code DVT prophylaxis: heparin Discussed with: patient and his Anticipated discharge date: 1-[address]: home A total of 45 minutes was spent on the care of this complex patient more than 50% of the time was spent in counseling and care coordination. I reviewed the documentation as provided by the NICK above, who is the original author of this note. I agree with the documented assessment and plan, with the following changes: none Past Medical History Past Medical History: Hypertension Additional Past Medical History / Comment(s): Prostate History of Any Multi-Drug Resistant Organisms: None Reported Past Surgical History: Orthopedic Surgery Past Psychological History: No Psychological Hx Reported Smoking Status: Never smoker Past Alcohol Use History: Occasional Past Drug Use History: Marijuana Medications and Allergies Home Medications Medication Instructions Recorded Confirmed Type Lisinopril-Hctz 20-12.5 mg 1 tab PO DAILY 09/18/20 05/25/22 History [Zestoretic 20-12.5] Travoprost [Travatan Z 0.004%] 1 drop BOTH EYES HS 09/18/20 05/25/22 History Ascorbic Acid [Vitamin C] 500 mg PO DAILY 05/25/22 05/25/22 History Cinnamon Bark [Cinnamon] 500 mg PO DAILY 05/25/22 05/25/22 History Ciprofloxacin HCl [Cipro] 750 mg PO BID 05/25/22 05/25/22 History Cyanocobalamin [Vitamin B-12] 500 mcg PO DAILY 05/25/22 05/25/22 History Tamsulosin [Flomax] 0.4 mg PO DAILY 05/25/22 05/25/22 History Zinc Gluconate [Zinc] 50 mg PO DAILY 05/25/22 05/25/22 History Allergies Allergy/AdvReac Type Severity Reaction Status Date / Time No Known Allergies Allergy Verified 05/25/22 14:13 Physical Exam Osteopathic Statement: *. No significant issues noted on an osteopathic struc tural exam other than those noted in the History and Physical/Consult. Vitals: Vital Signs Temp Pulse Resp BP Pulse Ox 05/25/22 13:23 86 18 157/94 97 05/25/22 12:05 100.6 F H 87 24 99 Intake and Output 05/24/22 05/25/22 05/25/22 22:59 06:59 14:59 Other: Weight 122.47 kg Results CBC & Chem 7: 05/25/22 13:16 05/25/22 13:16 Labs: Abnormal Lab Results - Last 24 Hours (Table) 05/25/22 05/25/22 05/25/22 Range/Units 13:16 13:16 13:25 RBC 4.08 L (4.30-5.90) m/uL Hct 38.1 L (39.0-53.0) % Neutrophils # 8.7 H (1.3-7.7) k/uL Lymphocytes # 0.6 L (1.0-4.8) k/uL Sodium 134 L (137-145) mmol/L Glucose 164 H (74-99) mg/dL Calcium 8.0 L (8.4-10.2) mg/dL Total Protein 5.9 L (6.3-8.2) g/dL Urine Protein 1+ H (Negative) Ur Leukocyte Esterase Moderate H (Negative) Urine WBC 35 H (0-5) /hpf Amorphous Sediment Rare H (None) /hpf Urine Bacteria Rare H (None) /hpf Urine Mucus Few H (None) /hpf
[2022-05-25] MEDS: HEPARIN SODIUM,PORCINE/PF 5,000 UNIT/0.5 ML SYRINGE SQ SCH ×2 (15:08→23:55)
[2022-05-25] MEDS: LATANOPROST 0.005% OPHTH DROPS 2.5 ML BTL BOTH EYES SCH (20:48)
[2022-05-25] MEDS: ACETAMINOPHEN TAB 325 MG TAB PO PRN (20:48)
--- NOTE | 2022-05-25 22:24 | P.CONS ---
History of Present Illness - Reason for Consult Consult date: 05/25/22 - History of Present Illness Patient is a 62-year-old male with a past medical history significant for recurrent episodes of prostatitis patient mention has been dealing with this since 2018 and has been on multiple courses of antibiotic has been evaluated by multiple urologist patient is a presenting to the [facility] ER concerning for fever nausea vomiting and did have a increasing lower back pain generalized fatigue also complaining of some difficulty urination but denies having any burning or hematuria with the symptom the patient was evaluated by ER physician on arrival to the ER patient did have a fever 100.6 F patient did have a normal white count with a left shift kidney function has been normal patient was positive for influenza and COVID testing was negative patient started on Levaquin 750 mg daily and did receive a dose of Rocephin in the ER patient was also on oral Cipro for about a month before his symptoms got worse infectious disease was consulted for further management of antibiotic therapy Past Medical History Past Medical History: Hypertension Additional Past Medical History / Comment(s): Prostate History of Any Multi-Drug Resistant Organisms: None Reported Past Surgical History: Orthopedic Surgery Past Psychological History: No Psychological Hx Reported Smoking Status: Never smoker Past Alcohol Use History: Occasional Past Drug Use History: Marijuana - Past Family History Father Family Medical History: Diabetes Mellitus, Myocardial Infarction ([place]) Additional Family Medical History / Comment(s): Father is Mother Additional Family Medical History / Comment(s): Parkinsons Medications and Allergies Home Medications Medication Instructions Recorded Confirmed Type Lisinopril-Hctz 20-12.5 mg 1 tab PO DAILY 09/18/20 05/25/22 History [Zestoretic 20-12.5] Travoprost [Travatan Z 0.004%] 1 drop BOTH EYES HS 09/18/20 05/25/22 History Ascorbic Acid [Vitamin C] 500 mg PO DAILY 05/25/22 05/25/22 History Cinnamon Bark [Cinnamon] 500 mg PO DAILY 05/25/22 05/25/22 History Ciprofloxacin HCl [Cipro] 750 mg PO BID 05/25/22 05/25/22 History Cyanocobalamin [Vitamin B-12] 500 mcg PO DAILY 05/25/22 05/25/22 History Tamsulosin [Flomax] 0.4 mg PO DAILY 05/25/22 05/25/22 History Zinc Gluconate [Zinc] 50 mg PO DAILY 05/25/22 05/25/22 History Allergies Allergy/AdvReac Type Severity Reaction Status Date / Time No Known Allergies Allergy Verified 05/25/22 14:13 Physical Exam Vitals: Vital Signs Temp Pulse Resp BP Pulse Ox 05/25/22 14:31 78 18 143/86 93 L 05/25/22 13:23 86 18 157/94 97 05/25/22 12:05 100.6 F H 87 24 99 Intake and Output 05/24/22 05/25/22 05/25/22 22:59 06:59 14:59 Other: Weight 122.47 kg Results CBC & Chem 7: 05/25/22 13:16 05/25/22 13:16 Labs: Abnormal Lab Results - Last 24 Hours (Table) 05/25/22 05/25/22 05/25/22 Range/Units 13:16 13:16 13:25 RBC 4.08 L (4.30-5.90) m/uL Hct 38.1 L (39.0-53.0) % Neutrophils # 8.7 H (1.3-7.7) k/uL Lymphocytes # 0.6 L (1.0-4.8) k/uL Sodium 134 L (137-145) mmol/L Glucose 164 H (74-99) mg/dL Calcium 8.0 L (8.4-10.2) mg/dL Total Protein 5.9 L (6.3-8.2) g/dL Urine Protein 1+ H (Negative) Ur Leukocyte Esterase Moderate H (Negative) Urine WBC 35 H (0-5) /hpf Amorphous Sediment Rare H (None) /hpf Urine Bacteria Rare H (None) /hpf Urine Mucus Few H (None) /hpf Assessment and Plan Plan: 1patient with a complicated history of recurrent prostatitis in this patient symptom has been going on for the last 4 years and has been on multiple courses of antibiotic recently on oral Cipro likely representing a quinolone resistant pathogen. 2discontinue Levaquin and start the patient Rocephin 2 g daily. 3we will obtain a CT of the pelvis with contrast to better define underlying pathology admission evidence of any prostatic abscess. 4gentle IV fluid. 5obtain inflammatory markers. We will follow on clinical condition and cultures to further adjust medication if needed Thank you for this consultation will follow this patient along with you Time with Patient: Greater than 30
[2022-05-26] MEDS: IOPAMIDOL CONTRAST (ORAL USE) VIAL PO PRN ×2 (08:26→09:27)
[2022-05-26] MEDS: ASCORBIC ACID 500 MG TAB PO SCH (08:27)
[2022-05-26] MEDS: ZINC SULFATE 220 MG CAP PO SCH (08:27)
[2022-05-26] MEDS: TAMSULOSIN 0.4 MG CAP.ER.24H PO SCH (08:27)
[2022-05-26] MEDS: CYANOCOBALAMIN 500 MCG TAB PO SCH (08:27)
[2022-05-26] MEDS: LISINOPRIL-HCTZ 20-12.5 MG 1 EACH TAB PO SCH (08:28)
[2022-05-26] MEDS: HEPARIN SODIUM,PORCINE/PF 5,000 UNIT/0.5 ML SYRINGE SQ SCH ×2 (08:29→17:17)
[2022-05-26 09:14] LABS: Basophils # (A) 0.02 X 10*3/uL (0.00-0.10); Basophils % (A) 0.2 %; Eosinophils # (A) 0.05 X 10*3/uL (0.04-0.35); Eosinophils % (A) 0.6 %; HCT 37.4 % (39.6-50.0); HGB 12.9 g/dL (13.0-17.0); Immature Grans, Automated 0.4 %; Lymphocytes # (A) 1.16 X 10*3/uL (0.90-5.00); Lymphocytes % (A) 12.8 %; MCH 32.9 pg (27.0-32.0); MCHC 34.5 g/dL (32.0-37.0); MCV 95.4 fL (80.0-97.0); Monocytes # (A) 1.39 X 10*3/uL (0.20-1.00); Monocytes % (A) 15.3 %; NRBC Per 100 WBC 0 /100 WBCS (0.0-0.0); Neutrophils # (A) 6.43 X 10*3/uL (1.80-7.70); Neutrophils % (A) 70.7 %; Platelet Count 225 X 10*3/uL (140-440); RBC 3.92 X 10*6/uL (4.40-5.60); RDW 13.1 % (11.5-14.5); WBC 9.09 X 10*3/uL (4.50-10.00)
[2022-05-26 09:27] LABS: African American GFR (CKD) 118.9 (60.0-200.0); Albumin 3.6 g/dL (3.8-4.9); Albumin/Globulin Ratio 1.71 (1.60-3.17); Anion Gap 8.9 mmol/L (10.00-18.00); BUN/Creat Ratio 14.14 Ratio (12.00-20.00); Blood Urea Nitrogen 9.9 mg/dL (9.0-27.0); C Reactive Protein 11.6 mg/dL (0.00-0.80); Calcium 8.4 mg/dL (8.7-10.3); Carbon Dioxide 26.1 mmol/L (20.0-27.5); Globulin 2.1 g/dL (1.6-3.3); Non-African American GFR(CKD) 102.6 (60.0-200.0); Potassium 3.8 mmol/L (3.5-5.5); Total Bilirubin 0.4 mg/dL (0.30-1.20); Total Protein 5.7 g/dL (6.2-8.2)
--- NOTE | 2022-05-26 11:03 | CT ---
EXAMINATION TYPE: CT abdomen pelvis w con DATE OF EXAM: 05/26/2022 COMPARISON: HISTORY: UTI, Prostatitis CT DLP: 2394.60 mGycm CONTRAST: CT scan of the abdomen and pelvis is performed with Oral Contrast and with IV Contrast, patient injec janet with 70 mL of Isovue 300. FINDINGS: LUNG BASES-: No visible nodule. No infiltrate. LIVER/GB: No calcified gallstones. No space occupying hepatic lesion. Biliary tree is of normal ca liber. PANCREAS: No inflammation. No distinct mass. SPLEEN: No splenic enlargement. No lesion seen. ADRENALS: No nodule. No thickening. KIDNEYS/BLADDER: No hydronephrosis. No nephrolithiasis. No distinct renal mass. Urinary bladder g rossly unremarkable. BOWEL: Normal appendix. Normal bowel caliber. No inflammation. GENITAL ORGANS: Prostate gland enlargement with Central calcifications. LYMPH NODES: No greater than 1cm abdominal or pelvic lymph nodes are appreciated. AORTA: No significant abnormality. OSSEOUS STRUCTURES: No significant abnormality is seen. OTHER: No significant additional abnormality is seen. IMPRESSION: 1. Prostate gland enlargement. Otherwise unremarkable study.
--- NOTE | 2022-05-26 13:30 | P.PN ---
Subjective Progress Note Date: 05/26/22 Hospital course: Patient is a very pleasant 62-year-old male with a past medical history of recurrent prostatitis since 2017 and hypertension. Patient reports he has been under treatment of [facility] and by his primary care provider Dr. Moss and recently started back on ciprofloxacin almost 3 weeks ago secondary to recurrent chronic bacterial prostatitis. Patient reports despite treatment for recurrent infection his symptoms of urinary retention and inabilit y to initiate a stream have significantly worsened. He presented to the emergency department today with a chief complaint of fever, nausea, and vomiting along with his urinary complaints. In addition pt reports increased lower back pain (consistent with his recurrent bacterial prostatitis episodes), generalized fatigue and body aches. He denies having any dizziness, lightheadedness, chest pain, palpitations, abdominal pain or discomfort, suprapubic pain, or flank pain Upon arrival to our facility patient had oral temp of 100.6F. CBC showing no significant abnormalities with WBC count of 10. 3. CMP revealed mild hyponatremia with sodium of 134 otherwise no abnormalities. Lactic acid 1.1. Urinalysis was positive for infection with 35 urine WBCs. Influenza A, influenza B, RSV, and Covid PCR was negative. Urine culture sent for analysis and patient was given 1 dose of Rocephin in the emergency department. Patient was admitted under our services, started on IV antibiotic Levaquin and consultation were placed to urology and infectious disease. Physical exam: Seen and fully evaluated at bedside this morning upon returning from CT. Patient reports he feels much better than he did yesterday stating lower back pain is still present but has improved and he has had no further episodes of nausea. Patient also reports that overnight his urinary retention resolved and he was "peeing like crazy". Patient received 1 dose of IV Levaquin and this was discontinued by infectious disease and patient started on Rocephin 2 g daily. Awaiting urine culture results as well as CT. Vital signs reviewed and stable. General: Nontoxic, no distress and appears stated age. Obese. Derm: Skin warm and dry, normal coloration for ethnicity. Head: Atraumatic, normocephalic and symmetric. Eyes: EOMs intact, no lid lag, and anicteric sclera Mouth: no lip lesions, mucus membranes moist Cardiovascular: regular rate and rhythm with normal S1S2, no murmur, positive posterior tibial pulses bilaterally, and cap refill < 2 seconds. Lungs: Respirations even, regular, and unlabored on room air. Lungs CTA bilaterally, no rhonchi, no rales, no wheezing, and no accessory muscle usage. Abdominal: soft, nontender to palpation, no guarding, no appreciable organomegaly. No CVA tenderness. Ext: ROM intact. No gross muscle atrophy, no edema, no contractures Neuro: Speech clear, face symmetrical and CN II-XII grossly intact with no noted focal neuro deficits Psych: Alert and oriented to person, place, time, and situation. Appropriate and pleasant affect. Assessment and Plan of Care: Recurrent chronic bacterial prostatitis Urinary tract infection Urinary retention, resolved -IV antibiotics: Levaquin discontinued by infectious disease and patient placed on Rocephin 2 g daily pending culture and sensitivity report. -CT abdomen and pelvis -Consult to urology -Iinfectious disease following -Follow up on urine culture and sensitivity report -Bladder management with bladder scanning as needed to monitor for postvoid residual -Increase Flomax 0.8 mg daily pending further recommendations from urology -Tylenol as needed for pain/fever Hypertension -Monitor vital signs and continue daily medication regimen with lisinopril/HCTZ CODE STATUS: Full code DVT prophylaxis: heparin Discussed with: patient and RN Anticipated discharge date: 1-[address]: home A total of 33 minutes was spent on the care of this complex patient more than 50% of the time was spent in counseling and care coordination. I reviewed the documentation as provided by the NICK above, who is the original author of this note. I agree with the documented assessment and plan, with the following changes: none Objective - Vital Signs Vital signs: Vital Signs Temp 99.5 F 05/26/22 04:20 Pulse 71 05/26/22 04:20 Resp 18 05/26/22 04:20 BP 123/72 05/26/22 04:20 Pulse Ox 98 05/26/22 04:20 FiO2 Intake & Output 05/25/22 05/26/22 05/26/22 18:59 06:59 18:59 Output Total 1000 400 Balance -1000 -400 Weight 122.47 kg Output: Urine 1000 400 Other: Voiding Method Toilet Toilet Urinal Urinal - Labs CBC & Chem 7: 05/26/22 05:32 05/26/22 05:32 Labs: Abnormal Lab Results - Last 24 Hours (Table) 05/25/22 05/25/22 05/25/22 Range/Units 13:16 13:16 13:25 RBC 4.08 L (4.30-5.90) m/uL Hct 38.1 L (39.0-53.0) % Neutrophils # 8.7 H (1.3-7.7) k/uL Lymphocytes # 0.6 L (1.0-4.8) k/uL Sodium 134 L (137-145) mmol/L Glucose 164 H (74-99) mg/dL Calcium 8.0 L (8.4-10.2) mg/dL Total Protein 5.9 L (6.3-8.2) g/dL Urine Protein 1+ H (Negative) Ur Leukocyte Esterase Moderate H (Negative) Urine WBC 35 H (0-5) /hpf Amorphous Sediment Rare H (None) /hpf Urine Bacteria Rare H (None) /hpf Urine Mucus Few H (None) /hpf Microbiology - Last 24 Hours (Table) 05/25/22 13:25 Urine Culture - Preliminary Urine,Voided
[2022-05-26] MEDS: SODIUM CHLORIDE 0.9% 1,000 ML IV SCH (15:12)
[2022-05-26] MEDS ORDERED: LEVOFLOXACIN 750MG-D5W PMX 750 MG in DEXTROSE/WATER 1 150ML.BAG IVPB SCH (16:00)
--- NOTE | 2022-05-26 16:24 | P.GSCN ---
History of Present Illness Consult date: 05/26/22 Reason for Consult: recurrent prostatitis Requesting physician: Todd Hoang History of present illness: Patient is a very pleasant 62-year-old male with a past medical history of recurrent prostatitis since 2016 and hypertension. He presented to the on 05/25/22 fever, nausea, vomiting, and lower back pain. Patient states that his PCP, Dr. Moss, has sent him to [facility] for his chronic prostatitis and has a flow test scheduled in June. Dr. Moss had recently started him back on ciprofloxacin, almost 3 weeks ago secondary to recurrent chronic bacterial prostatitis. Patient reports despite treatment for recurrent infection his symptoms of urinary retention and inability to initiate a stream have significantly worsened. He denied having any dizziness, lightheadedness, chest pain, palpitations, abdominal pain or discomfort, suprapubic pain, or flank pain. Upon arrival to our facility patient had oral temp of 100.6F, WBC count of 10.3, Lactic acid 1.1. Urinalysis was positive for infection. Urine culture sent for analysis and patient was given 1 dose of Rocephin in [facility] department. Review of Systems - Constitutional Reports chills, Reports fever - Cardiovascular Denies shortness of breath - Gastrointestinal Reports nausea, Reports vomiting - Genitourinary Reports nocturia, Reports urinary retention, Denies flank pain, Denies hematuria - Musculoskeletal Reports low back pain Past Medical History Past Medical History: Hypertension Additional Past Medical History / Comment(s): Prostate History of Any Multi-Drug Resistant Organisms: None Reported Past Surgical History: Orthopedic Surgery Additional Past Surgical History / Comment(s): Right total knee sreplacement. Past Anesthesia/Blood Transfusion Reactions: No Reported Reaction Past Psychological History: No Psychological Hx Reported Smoking Status: Never smoker Past Alcohol Use History: Occasional Past Drug Use History: Marijuana - Past Family History Father Family Medical History: Diabetes Mellitus, Myocardial Infarction ([place]) Additional Family Medical History / Comment(s): Father is Mother Additional Family Medical History / Comment(s): Parkinsons Medications and Allergies Home Medications Medication Instructions Recorded Confirmed Type Lisinopril-Hctz 20-12.5 mg 1 tab PO DAILY 09/18/20 05/25/22 History [Zestoretic 20-12.5] Travoprost [Travatan Z 0.004%] 1 drop BOTH EYES HS 09/18/20 05/25/22 History Ascorbic Acid [Vitamin C] 500 mg PO DAILY 05/25/22 05/25/22 History Cinnamon Bark [Cinnamon] 500 mg PO DAILY 05/25/22 05/25/22 History Ciprofloxacin HCl [Cipro] 750 mg PO BID 05/25/22 05/25/22 History Cyanocobalamin [Vitamin B-12] 500 mcg PO DAILY 05/25/22 05/25/22 History Tamsulosin [Flomax] 0.4 mg PO DAILY 05/25/22 05/25/22 History Zinc Gluconate [Zinc] 50 mg PO DAILY 05/25/22 05/25/22 History Allergies Allergy/AdvReac Type Severity Reaction Status Date / Time No Known Allergies Allergy Verified 05/25/22 14:13 Surgical - Exam Vital Signs Temp Pulse Resp Pulse Ox 100.6 F H 87 24 99 05/25/22 12:05 05/25/22 12:05 05/25/22 12:05 05/25/22 12:05 General: Well developed, well nourished. No acute distress. HEENT: Head is atraumatic, normocephalic. Lungs: Respirations even and nonlabored. Abdomen/GI: Soft.Obese. No CVA tenderness. No guarding, rigidity, or abdominal tenderness. Skin: Warm and dry Neurologic: Awake, alert and oriented times 3. CN II-XII grossly intact. No focal deficits. Psychiatric: Appropriate mood and affect. - General well developed, well nourished, no distress - Respiratory normal respiratory effort - Abdomen Abdomen: soft, non tender, no guarding, no rigid, no rebound - Genitourinary normal penis with no external lesions, testicles non-tender - Psychiatric oriented to time, oriented to person, oriented to place, speech is normal, memory intact Results - Labs 05/26/22 05:32 05/26/22 05:32 Abnormal Lab Results - Last 24 Hours (Table) 05/26/22 05/26/22 Range/Units 05:32 05:32 RBC 3.92 L (4.40-5.60) X 10*6/uL Hgb 12.9 L (13.0-17.0) g/dL Hct 37.4 L (39.6-50.0) % MCH 32.9 H (27.0-32.0) pg Monocytes # 1.39 H (0.20-1.00) X 10*3/uL Anion Gap 8.90 L (10.00-18.00) mmol/L Glucose 138 H (70-110) mg/dL Calcium 8.4 L (8.7-10.3) mg/dL C-Reactive Protein 11.60 H (0.00-0.80) mg/dL Total Protein 5.7 L (6.2-8.2) g/dL Albumin 3.6 L (3.8-4.9) g/dL Microbiology - Last 24 Hours (Table) 05/25/22 13:25 Urine Culture - Preliminary Urine,Voided Diabetes panel 05/26/22 Range/Units 05:32 Sodium 139 (135-145) mmol/L Potassium 3.8 (3.5-5.5) mmol/L Chloride 104 (96-109) mmol/L Carbon Dioxide 26.1 (20.0-27.5) mmol/L BUN 9.9 (9.0-27.0) mg/dL Creatinine 0.7 (0.6-1.5) mg/dL Glucose 138 H (70-110) mg/dL Calcium 8.4 L (8.7-10.3) mg/dL AST 21 (14-35) U/L ALT 30 (10-49) U/L Alkaline Phosphatase 57 (41-126) U/L Total Protein 5.7 L (6.2-8.2) g/dL Albumin 3.6 L (3.8-4.9) g/dL Calcium panel 05/26/22 Range/Units 05:32 Calcium 8.4 L (8.7-10.3) mg/dL Albumin 3.6 L (3.8-4.9) g/dL Pituitary panel 05/26/22 Range/Units 05:32 Sodium 139 (135-145) mmol/L Potassium 3.8 (3.5-5.5) mmol/L Chloride 104 (96-109) mmol/L Carbon Dioxide 26.1 (20.0-27.5) mmol/L BUN 9.9 (9.0-27.0) mg/dL Creatinine 0.7 (0.6-1.5) mg/dL Glucose 138 H (70-110) mg/dL Calcium 8.4 L (8.7-10.3) mg/dL Adrenal panel 05/26/22 Range/Units 05:32 Sodium 139 (135-145) mmol/L Potassium 3.8 (3.5-5.5) mmol/L Chloride 104 (96-109) mmol/L Carbon Dioxide 26.1 (20.0-27.5) mmol/L BUN 9.9 (9.0-27.0) mg/dL Creatinine 0.7 (0.6-1.5) mg/dL Glucose 138 H (70-110) mg/dL Calcium 8.4 L (8.7-10.3) mg/dL Total Bilirubin 0.40 (0.30-1.20) mg/dL AST 21 (14-35) U/L ALT 30 (10-49) U/L Alkaline Phosphatase 57 (41-126) U/L Total Protein 5.7 L (6.2-8.2) g/dL Albumin 3.6 L (3.8-4.9) g/dL - Imaging CT scan - abdomen: report reviewed, image reviewed Assessment and Plan Assessment: The patient c/o occasional nausea today, but no vomiting. He states he is able to void with a steadier stream today and feels as if he is emptying his bladder. He is experiencing urgency to urinate, but no increase in his frequency. He denies any hematuria, suprapubic pain, or flank pain. He does report some lower back pain. Abdominal/pelvis CT report reviewed which revealed his chronic prostate enlargement, but was otherwise unremarkable. (1) Prostatitis, chronic Current Visit: Yes Status: Acute Code(s): N41.1 - CHRONIC PROSTATITIS SNOMED Code(s): 91781698 Plan: - Agree with increasing Flomax to 0.8mg daily - Check PVR - Continue Rocephin - Await final urine cultures - Patient will follow up with [facility] or myself as outpatient - May require TURP Impression and plan of care have been directed as dictated by the signing physician. Kari Deal nurse practitioner acting as scribe for signing physician. Thank you for this consultation. Kari Deal [facility] Palliative Care [facility] [email or web address] Email: [email or web address] Time with Patient: Less than 30
[2022-05-26] MEDS: LATANOPROST 0.005% OPHTH DROPS 2.5 ML BTL BOTH EYES SCH (21:09)
[2022-05-27] MEDS: HEPARIN SODIUM,PORCINE/PF 5,000 UNIT/0.5 ML SYRINGE SQ SCH ×3 (01:57→16:41)
--- NOTE | 2022-05-27 07:25 | P.PN ---
Subjective Progress Note Date: 05/26/22 Principal diagnosis: Prostatitis Patient is a 62-year-old male with a past medical history significant for recurrent prostatitis and urinary tract infection recently and he has been on the prolonged oral Cipro course presented to the hospital with worsening urine symptoms and fever concerning for recurrent/persistent prostatitis. On today's evaluation that is 05/26/2022, the patient overall fever pattern has improved and the patient is afebrile this morning patient is feeling better as well patient denies having any chest pain or shortness with or cough no abdomin al pain no diarrhea Objective - Vital Signs Vital signs: Vital Signs Temp 99.5 F 05/26/22 04:20 Pulse 71 05/26/22 04:20 Resp 18 05/26/22 04:20 BP 123/72 05/26/22 04:20 Pulse Ox 98 05/26/22 04:20 FiO2 Intake & Output 05/25/22 05/26/22 05/26/22 18:59 06:59 18:59 Output Total 1000 400 Balance -1000 -400 Weight 122.47 kg Output: Urine 1000 400 Other: Voiding Method Toilet Toilet Urinal Urinal - Exam GENERAL DESCRIPTION: Middle-aged male lying in bed in no distress RESPIRATORY SYSTEM: Unlabored breathing , decreased breath sounds at bases HEART: S1 S2 regular rate and rhythm , ABDOMEN: Soft , no tenderness EXTREMITIES: No edema feet - Labs CBC & Chem 7: 05/26/22 05:32 05/26/22 05:32 Labs: Abnormal Lab Results - Last 24 Hours (Table) 05/25/22 05/25/22 05/25/22 Range/Units 13:16 13:16 13:25 RBC 4.08 L (4.30-5.90) m/uL Hgb (13.0-17.0) g/dL Hct 38.1 L (39.0-53.0) % MCH (27.0-32.0) pg Neutrophils # 8.7 H (1.3-7.7) k/uL Lymphocytes # 0.6 L (1.0-4.8) k/uL Monocytes # (0.20-1.00) X 10*3/uL Sodium 134 L (137-145) mmol/L Anion Gap (10.00-18.00) mmol/L Glucose 164 H (74-99) mg/dL Calcium 8.0 L (8.4-10.2) mg/dL C-Reactive Protein (0.00-0.80) mg/dL Total Protein 5.9 L (6.3-8.2) g/dL Albumin (3.8-4.9) g/dL Urine Protein 1+ H (Negative) Ur Leukocyte Esterase Moderate H (Negative) Urine WBC 35 H (0-5) /hpf Amorphous Sediment Rare H (None) /hpf Urine Bacteria Rare H (None) /hpf Urine Mucus Few H (None) /hpf 05/26/22 05/26/22 Range/Units 05:32 05:32 RBC 3.92 L (4.30-5.90) m/uL Hgb 12.9 L (13.0-17.0) g/dL Hct 37.4 L (39.0-53.0) % MCH 32.9 H (27.0-32.0) pg Neutrophils # (1.3-7.7) k/uL Lymphocytes # (1.0-4.8) k/uL Monocytes # 1.39 H (0.20-1.00) X 10*3/uL Sodium (137-145) mmol/L Anion Gap 8.90 L (10.00-18.00) mmol/L Glucose 138 H (74-99) mg/dL Calcium 8.4 L (8.4-10.2) mg/dL C-Reactive Protein 11.60 H (0.00-0.80) mg/dL Total Protein 5.7 L (6.3-8.2) g/dL Albumin 3.6 L (3.8-4.9) g/dL Urine Protein (Negative) Ur Leukocyte Esterase (Negative) Urine WBC (0-5) /hpf Amorphous Sediment (None) /hpf Urine Bacteria (None) /hpf Urine Mucus (None) /hpf Microbiology - Last 24 Hours (Table) 05/25/22 13:25 Urine Culture - Preliminary Urine,Voided Assessment and Plan (1) Prostatitis, chronic Current Visit: Yes Status: Acute Code(s): N41.1 - CHRONIC PROSTATITIS SNOMED Code(s): 21832800 (2) UTI (urinary tract infection) Current Visit: Yes Status: Acute Code(s): N39.0 - URINARY TRACT INFECTION, SITE NOT SPECIFIED SNOMED Code(s): 65480136 Plan: 1patient with a complicated history of recurrent prostatitis in this patient symptom has been going on for the last 4 years and has been on multiple courses of antibiotic recently on oral Cipro likely representing a quinolone resistant pathogen. 2 CT of the pelvis with contrast which shows prostatomegaly but no evidence of any abscess 3we will continue the patient on Rocephin 2 g daily while waiting for the cultures to finalize Time with Patient: Less than 30
[2022-05-27] MEDS: ZINC SULFATE 220 MG CAP PO SCH (10:11)
[2022-05-27] MEDS: ASCORBIC ACID 500 MG TAB PO SCH (10:12)
[2022-05-27] MEDS: CYANOCOBALAMIN 500 MCG TAB PO SCH (10:13)
[2022-05-27] MEDS: TAMSULOSIN 0.4 MG CAP.ER.24H PO SCH ×2 (10:13→11:04)
[2022-05-27] MEDS: LISINOPRIL-HCTZ 20-12.5 MG 1 EACH TAB PO SCH (11:04)
--- NOTE | 2022-05-27 11:46 | P.PN ---
Subjective Progress Note Date: 05/27/22 Principal diagnosis: Prostatitis Patient is a very pleasant 62-year-old male with a past medical history of recurrent prostatitis since 2017 and hypertension. He presented to the on 05/25/22 fever, nausea, vomiting, and lower back pain. Patient states that his PCP, Dr. Moss, has sent him to [place] [facility] for his chronic prostatitis and has a flow test scheduled in June. Dr. Moss had recently started him back on ciprofloxacin, almost 3 weeks ago secondary to recurrent chronic bacterial prostatitis. Patient reports despite treatment for recurrent infection his symptoms of urinary retention and inability to initiate a stream have significantly worsened. He denied having any dizziness, lightheadedness, chest pain, palpitations, abdominal pain or discomfort, suprapubic pain, or flank pain. Upon arrival to our facility patient had oral temp of 100.6F, WBC count of 10.3, Lactic acid 1.1. Urinalysis was positive for infection. Urine c ulture sent for analysis and patient was given 1 dose of Rocephin in the emergency department. 05/26 The patient c/o occasional nausea today, but no vomiting. He states he is able to void with a steadier stream today and feels as if he is emptying his bladder. He is experiencing urgency to urinate, but no increase in his frequency. He denies any hematuria, suprapubic pain, or flank pain. He does report some lower back pain. Abdominal/pelvis CT report reviewed which revealed his chronic prostate enlargement, but was otherwise unremarkable. Preliminary urine culture shows gram negative bacilli. Objective - Vital Signs Vital signs: Vital Signs Temp 98.4 F 05/27/22 05:28 Pulse 60 05/27/22 05:28 Resp 16 05/27/22 05:28 BP 136/80 05/27/22 05:28 Pulse Ox 96 05/27/22 05:28 FiO2 Intake & Output 05/26/22 05/27/22 05/27/22 18:59 06:59 18:59 Intake Total 170 Output Total 400 Balance -230 Intake: Intake, IV Titration 170 Amount Sodium Chloride 0.9% 1, 120 000 ml @ 20 mls/hr IV . Q24H [facility] Rx#:[id number] cefTRIAXone 2 gm In 50 Sodium Chloride 0.9% 50 ml @ 100 mls/hr IVPB Q24HR [facility] Rx#:[id number] Output: Urine 400 Other: Voiding Method Toilet Toilet Urinal Urinal # Voids 4 0 - Exam General: Well developed, well nourished. No acute distress. HEENT: Head is atraumatic, normocephalic. Lungs: Respirations even and nonlabored. Abdomen/GI: Soft.Obese. No CVA tenderness. No guarding, rigidity, or abdominal tenderness. Skin: Warm and dry Neurologic: Awake, alert and oriented times 3. CN II-XII grossly intact. No focal deficits. Psychiatric: Appropriate mood and affect. - Labs CBC & Chem 7: 05/26/22 05:32 05/26/22 05:32 Labs: Microbiology - Last 24 Hours (Table) 05/25/22 13:25 Urine Culture - Preliminary Urine,Voided Gram Neg Bacilli Assessment and Plan Assessment: The patient states overall he feels much better today. He denies any nausea or vomiting and states his appetite has even improved. He states he is able to void with a steadier stream today and feels as if he is emptying his bladder. He denies any hematuria, suprapubic pain, or flank pain. He does report some lower back pain. (1) Prostatitis, chronic Current Visit: Yes Status: Acute Code(s): N41.1 - CHRONIC PROSTATITIS SNOMED Code(s): 24295330 Plan: - Continue Flomax to 0.8mg daily - Check PVR - Continue Rocephin - Await final urine cultures - Follow up with [facility] or Dr. Goldsmith as outpatient Impression and plan of care have been directed as dictated by the signing physician. Kari Deal nurse practitioner acting as scribe for signing physician. Thank you for this consultation Kari Deal [facility] Palliative Care [facility] [id number] Email: [email or web address] Time with Patient: Less than 30
[2022-05-27] MEDS: SODIUM CHLORIDE 0.9% 1,000 ML IV SCH (15:47)
--- NOTE | 2022-05-27 16:54 | P.PN ---
Subjective Progress Note Date: 05/27/22 Hospital course: Patient is a very pleasant 62-year-old male with a past medical history of recurrent prostatitis since 2017 and hypertension. Patient reports he has been under treatment of [place] [facility] and by his primary care provider Dr. Moss and recently started back on ciprofloxacin almost 3 weeks ago secondary to recurrent chronic bacterial prostatitis. Patient reports despite treatment for recurrent infection his symptoms of urinary retention and inabilit y to initiate a stream have significantly worsened. He presented to the emergency department today with a chief complaint of fever, nausea, and vomiting along with his urinary complaints. In addition pt reports increased lower back pain (consistent with his recurrent bacterial prostatitis episodes), generalized fatigue and body aches. He denies having any dizziness, lightheadedness, chest pain, palpitations, abdominal pain or discomfort, suprapubic pain, or flank pain Upon arrival to our facility patient had oral temp of 100.6F. CBC showing no significant abnormalities with WBC count of 10. 3. CMP revealed mild hyponatremia with sodium of 134 otherwise no abnormalities. Lactic acid 1.1. Urinalysis was positive for infection with 35 urine WBCs. Influenza A, influenza B, RSV, and Covid PCR was negative. Urine culture sent for analysis and patient was given 1 dose of Rocephin in the emergency department. Patient was admitted under our services, started on IV antibiotic Levaquin and consultation were placed to urology and infectious disease. CT abdomen and pelvis revealed prostate gland enlargement otherwise unremarkable study showing no abscesses or other abnormalities. Levaquin was discontinued and patient started on Rocephin 2 g daily. Preliminary urine cultures positive for gram-negative bacilli. Physical exam: Patient seen and fully evaluated at bedside this morning. Overall patient appears to be doing well and denies having any complaints this morning. Prelimi nary cultures positive for gram-negative bacilli, plan is for discharge once final culture and sensitivity report is available. Vital signs reviewed and stable. General: Nontoxic, no distress and appears stated age. Obese. Derm: Skin warm and dry, normal coloration for ethnicity. Head: Atraumatic, normocephalic and symmetric. Eyes: EOMs intact, no lid lag, and anicteric sclera Mouth: no lip lesions, mucus membranes moist Cardiovascular: regular rate and rhythm with normal S1S2, no murmur, positive posterior tibial pulses bilaterally, and cap refill < 2 seconds. Lungs: Respirations even, regular, and unlabored on room air. Lungs CTA bilaterally, no rhonchi, no rales, no wheezing, and no accessory muscle usage. Abdominal: soft, nontender to palpation, no guarding, no appreciable org anomegaly. No CVA tenderness. Ext: ROM intact. No gross muscle atrophy, no edema, no contractures Neuro: Speech clear, face symmetrical and CN II-XII grossly intact with no noted focal neuro deficits Psych: Alert and oriented to person, place, time, and situation. Appropriate and pleasant affect. Assessment and Plan of Care: Recurrent chronic bacterial prostatitis Urinary tract infection Urinary retention, resolved -IV antibiotics: Levaquin discontinued by infectious disease and patient placed on Rocephin 2 g daily pending culture and sensitivity report. -CT abdomen and pelvis revealed prostate gland enlargement otherwise unremarkable study showing no abscesses or other abnormalities. -Consult to urology -Iinfectious disease following -Follow up on urine culture and sensitivity report. Preliminary cultures positive for gram-negative bacilli. -Bladder management with bladder scanning as needed to monitor for postvoid residual -Flomax increased to 0.8 mg daily. -Tylenol as needed for pain/fever Hypertension -Monitor vital signs and continue daily medication regimen with lisinopril/HCTZ CODE STATUS: Full code DVT prophylaxis: heparin Discussed with: patient and RN Anticipated discharge date: Likely tomorrow pending final culture and sensitivity report. Anticipated discharge place: home A total of 33 minutes was spent on the care of this complex patient more than 50% of the time was spent in counseling and care coordination. I reviewed the documentation as provided by the NICK above, who is the original author of this note. I agree with the documented assessment and plan, with the following changes: none Objective - Vital Signs Vital signs: Vital Signs Temp 98.4 F 05/27/22 05:28 Pulse 60 05/27/22 05:28 Resp 16 05/27/22 05:28 BP 136/80 05/27/22 05:28 Pulse Ox 96 05/27/22 05:28 FiO2 Intake & Output 05/26/22 05/27/22 05/27/22 18:59 06:59 18:59 Intake Total 170 Output Total 400 Balance -230 Intake: Intake, IV Titration 170 Amount Sodium Chloride 0.9% 1, 120 000 ml @ 20 mls/hr IV . Q24H [facility] Rx#:[id number] cefTRIAXone 2 gm In 50 Sodium Chloride 0.9% 50 ml @ 100 mls/hr IVPB Q24HR [facility] Rx#:[id number] Output: Urine 400 Other: Voiding Method Toilet Toilet Urinal Urinal # Voids 4 0 - Labs CBC & Chem 7: 05/26/22 05:32 05/26/22 05:32 Labs: Microbiology - Last 24 Hours (Table) 05/25/22 13:25 Urine Culture - Preliminary Urine,Voided Gram Neg Bacilli
[2022-05-27] MEDS: LATANOPROST 0.005% OPHTH DROPS 2.5 ML BTL BOTH EYES SCH (20:12)
--- NOTE | 2022-05-27 23:59 | P.PN ---
Subjective Progress Note Date: 05/27/22 Principal diagnosis: Prostatitis Patient is a 62-year-old male with a past medical history significant for recurrent prostatitis and urinary tract infection recently and he has been on the prolonged oral Cipro course presented to the hospital with worsening urine symptoms and fever concerning for recurrent/persistent prostatitis. On today's evaluation that is 05/27/2022, the patient is afebrile this morning patient is feeling better as well patient denies having any chest pain or shortness with or cough, the patient has nausea and vomiting no abdominal pain no diarrhea Objective - Vital Signs Vital signs: Vital Signs Temp 98.4 F 05/27/22 05:28 Pulse 60 05/27/22 05:28 Resp 16 05/27/22 05:28 BP 136/80 05/27/22 05:28 Pulse Ox 96 05/27/22 05:28 FiO2 Intake & Output 05/26/22 05/27/22 05/27/22 18:59 06:59 18:59 Intake Total 170 Output Total 400 Balance -230 Intake: Intake, IV Titration 170 Amount Sodium Chloride 0.9% 1, 120 000 ml @ 20 mls/hr IV . Q24H [facility] Rx#:[id number] cefTRIAXone 2 gm In 50 Sodium Chloride 0.9% 50 ml @ 100 mls/hr IVPB Q24HR [facility] Rx#:[id number] Output: Urine 400 Other: Voiding Method Toilet Toilet Urinal Urinal # Voids 4 0 - Exam GENERAL DESCRIPTION: Middle-aged male lying in bed in no distress RESPIRATORY SYSTEM: Unlabored breathing , decreased breath sounds at bases HEART: S1 S2 regular rate and rhythm , ABDOMEN: Soft , no tenderness EXTREMITIES: No edema feet - Labs CBC & Chem 7: 05/26/22 05:32 05/26/22 05:32 Labs: Microbiology - Last 24 Hours (Table) 05/25/22 13:25 Urine Culture - Preliminary Urine,Voided Gram Neg Bacilli Assessment and Plan (1) Prostatitis, chronic Current Visit: Yes Status: Acute Code(s): N41.1 - CHRONIC PROSTATITIS SNOMED Code(s): 28369973 (2) UTI (urinary tract infection) Current Visit: Yes Status: Acute Code(s): N39.0 - URINARY TRACT INFECTION, SITE NOT SPECIFIED SNOMED Code(s): 44028133 Plan: 1patient with a complicated history of recurrent prostatitis in this patient s [place] has been going on for the last 4 years and has been on multiple courses of antibiotic recently on oral Cipro likely representing a quinolone resistant pathogen. 2 CT of the pelvis with contrast which shows prostatomegaly but no evidence of any abscess 3the patient seemed to have shown clinical improvement and will continue the patient on Rocephin 2 g daily while waiting for the cultures to finalize to determine his discharge antibiotics Time with Patient: Less than 30
[2022-05-28] MEDS: ERTAPENEM 1 GM in SODIUM CHLORIDE 0.9% 50 ML IVPB SCH ×2 (01:10→16:21)
[2022-05-28] MEDS: HEPARIN SODIUM,PORCINE/PF 5,000 UNIT/0.5 ML SYRINGE SQ SCH ×3 (01:16→15:47)
[2022-05-28 07:29] VITALS: RESP 18
[2022-05-28] MEDS: ASCORBIC ACID 500 MG TAB PO SCH (08:57)
[2022-05-28] MEDS: TAMSULOSIN 0.4 MG CAP.ER.24H PO SCH (08:57)
[2022-05-28] MEDS: LISINOPRIL-HCTZ 20-12.5 MG 1 EACH TAB PO SCH (08:58)
[2022-05-28] MEDS: ZINC SULFATE 220 MG CAP PO SCH (08:58)
[2022-05-28] MEDS: CYANOCOBALAMIN 500 MCG TAB PO SCH (08:58)
[2022-05-28] MEDS: ACETAMINOPHEN TAB 325 MG TAB PO PRN (08:59)
[2022-05-28 11:30] VITALS: BP 161/94; PULSE 65; TEMP 97.7
--- NOTE | 2022-05-28 13:56 | P.PN ---
Subjective Progress Note Date: 05/28/22 Principal diagnosis: Prostatitis Patient is a very pleasant 62-year-old male with a past medical history of recurrent prostatitis since 2017 and hypertension. He presented to the on 05/25/22 fever, nausea, vomiting, and lower back pain. Patient states that his PCP, Dr. Moss, has sent him to [place] [facility] for his chronic prostatitis and has a flow test scheduled in June. Dr. Moss had recently started him back on ciprofloxacin, almost 3 weeks ago secondary to recurrent chronic bacterial prostatitis. Patient reports despite treatment for recurrent infection his symptoms of urinary retention and inability to initiate a stream have significantly worsened. He denied having any dizziness, lightheadedness, chest pain, palpitations, abdominal pain or discomfort, suprapubic pain, or flank pain. Upon arrival to our facility patient had oral temp of 100.6F, WBC count of 10.3, Lactic acid 1.1. Urinalysis was positive for infection. Urine c ulture sent for analysis and patient was given 1 dose of Rocephin in the emergency department. 05/26 The patient c/o occasional nausea today, but no vomiting. He states he is able to void with a steadier stream today and feels as if he is emptying his bladder. He is experiencing urgency to urinate, but no increase in his frequency. He denies any hematuria, suprapubic pain, or flank pain. He does report some lower back pain. Abdominal/pelvis CT report reviewed which revealed his chronic prostate enlargement, but was otherwise unremarkable. 05/27 The patient states overall he feels much better today. He denies any nausea or vomiting and states his appetite has even improved. He states he is able to void with a steadier stream today and feels as if he is emptying his bladder. He denies any hematuria, suprapubic pain, or flank pain. He does report some lower back pain. Objective - Vital Signs Vital signs: Vital Signs Temp 98.1 F 05/28/22 07:27 Pulse 64 05/28/22 07:27 Resp 18 05/28/22 07:27 BP 145/95 05/28/22 07:49 Pulse Ox 100 05/28/22 07:27 FiO2 Intake & Output 05/27/22 05/28/22 05/28/22 18:59 06:59 18:59 Other: Voiding Method Toilet Urinal # Voids 2 - Exam General: Well developed, well nourished. No acute distress. HEENT: Head is atraumatic, normocephalic. Lungs: Respirations even and nonlabored. on RA Abdomen/GI: Soft.Obese. No CVA tenderness. No guarding, rigidity, + suprapubic an right groin tenderness Skin: Warm and dry Neurologic: Awake, alert and oriented times 3. CN II-XII grossly intact. No focal deficits. Psychiatric: Appropriate mood and affect. - Labs CBC & Chem 7: 05/26/22 05:32 05/26/22 05:32 Labs: Microbiology - Last 24 Hours (Table) 05/25/22 13:25 Urine Culture - Final Urine,Voided Escherichia coli Assessment and Plan Assessment: Patient states he is feeling much better today. He has a good appetite and is vo iding well. He reports some new suprapubic and right groin pain. He states his lower back pain has improved. Instructed RN to check PVR and call urology [facility] with results. (1) Prostatitis, chronic Status: Acute Code(s): N41.1 - CHRONIC PROSTATITIS SNOMED Code(s): 40051720 Plan: - Continue Flomax to 0.8mg daily - Check PVR - Final urine culture reveals ESBL, not sensitive to Ceftriaxone - Antibiotic plan per ID - Follow up with Dr. Goldsmith as outpatient in 2 weeks Impression and plan of care have been directed as dictated by the signing physician. Kari Deal nurse practitioner acting as scribe for signing physician. Thank you for this consultation Kari Deal [facility] Palliative Care [place] [id number] Email: [email or web address] I have personally seen and examined the patient, reviewed the documentation and agree with the assessment and plan as written. Number of minutes spent on the visit: 15. Santos Goldsmith MD Time with Patient: Less than 30
--- NOTE | 2022-05-28 15:03 | P.DS ---
Providers Date of admission: 05/25/22 14:13 Expected date of discharge: 05/28/22 Attending physician: Schuyler Nieto MD Consults: 05/25/22 14:09 Consult Physician Routine Consulting Provider: Ihsan Mays Consult Reason/Comments: prostatitis Do you want consulting provider notified?: Yes 05/25/22 14:10 Consult Physician Routine Consulting Provider: Angel Paredes Consult Reason/Comments: chronic uti Do you want consulting provider notified?: Yes Primary care physician: Garfield Moss Hospital Course: Discharge Diagnosis: Chronic bacterial prostatitis HTN Obesity wtih BMI 36.6 Hospital Course: Patient is a very pleasant 62-year-old male with a past medical history of recurrent prostatitis since 2017 and hypertension who presetned with fever, nuasea, and vomiting, urinary retention. Patient reports he has been under treatment of [place] [facility] and by his primary care provider Dr. Moss and recently started back on ciprofloxacin almost 3 weeks ago secondary to recurrent chronic bacterial prostatitis. Patient reports despite treatment for recurrent infection his symptoms of urinary retention and inability to initiate a stream have significantly worsened. Upon arrival to the ED patient had a temp of 100.6F. CBC showed no significant abnormalities, CMP showed hyponatremia with sodium of 134 otherwise no abnormalities Urinalysis was positive for 35 urine WBCs. Influenza A, influenza B, RSV, and Covid PCR was negative. Urine culture sent for analysis and patient was given 1 dose of Rocephin in the emergency department. Patient was admitted and started on IV antibiotic Levaquin. Urology and ID were consulted. CT abdomen and pelvis revealed prostate gland enlargement otherwise unremarkable study showing no abscesses or other abnormalities. Levaquin was discontinued and patient started on Rocephin 2 g daily. Urine culture grew ESBL E. coli. Patient's symptoms abated. He had a PICC line placed. He was determined stable for discharge home. He will complete a course of IV imipenem, right now the plan is for 4 weeks the likely will take 8-12 weeks. Follow-up: Dr. Paredes in 1 week, Dr. Reeder in 2 weeks, Dr. Moss in 1 week. He will follow with [facility] for infusion, Flomax was increased to 0.8 mg daily. Patient seen and examined at bedside. He denies any nausea, vomiting, or diarrhea. He is feeling better than at admission. Vital signs reviewed and stable. General: nontoxic, no distress, appears at stated age Derm: warm, dry Head: atraumatic, normocephalic, symmetric Eyes: EOMI, no lid lag, anicteric sclera Mouth: no lip lesion, mucus membranes moist Cardiovascular: S1S2 reg, no murmur, positive posterior tibial pulse bilateral, Lungs: CTA bilateral, no rhonchi, no rales , no accessory muscle use Abdominal: soft, nontender to palpation, no guarding, no appreciable organomegaly Ext: no gross muscle atrophy, no edema, no contractures Neuro: CN II-XI grossly intact, no focal neuro deficits Psych: Alert, oriented, appropriate affect A total of 37 minutes of time were spent preparing this complex discharge summary. Patient was discharged on 05/28/22. Patient Condition at Discharge: Fair Plan - Discharge Summary New Discharge Prescriptions: New Tamsulosin [Flomax] 0.8 mg PO -KT #60 cap Ertapenem [INVanz] 1 gm IVPB HS each Continue Travoprost [Travatan Z 0.004%] 1 drop BOTH EYES HS Lisinopril-Hctz 20-12.5 mg [Zestoretic 20-12.5] 1 tab PO DAILY Cinnamon Bark [Cinnamon] 500 mg PO DAILY Zinc Gluconate [Zinc] 50 mg PO DAILY Cyanocobalamin [Vitamin B-12] 500 mcg PO DAILY Ascorbic Acid [Vitamin C] 500 mg PO DAILY Discontinued Ciprofloxacin HCl [Cipro] 750 mg PO BID Tamsulosin [Flomax] 0.4 mg PO DAILY Discharge Medication List Lisinopril-Hctz 20-12.5 mg [Zestoretic 20-12.5] 1 tab PO DAILY 09/18/20 [History] Travoprost [Travatan Z 0.004%] 1 drop BOTH EYES HS 09/18/20 [History] Ascorbic Acid [Vitamin C] 500 mg PO DAILY 05/25/22 [History] Cinnamon Bark [Cinnamon] 500 mg PO DAILY 05/25/22 [History] Cyanocobalamin [Vitamin B-12] 500 mcg PO DAILY 05/25/22 [History] Zinc Gluconate [Zinc] 50 mg PO DAILY 05/25/22 [History] Ertapenem [INVanz] 1 gm IVPB HS each 05/28/22 [Rx] Tamsulosin [Flomax] 0.8 mg PO PC-BRKFST #60 cap 05/28/22 [Rx] Follow up Appointment(s)/Referral(s): Santos Goldsmith MD [STAFF PHYSICIAN] - 2 Weeks Garfield Moss MD [Primary Care Provider] - 1-2 days [facility] [NON-STAFF] - 1 Week Angel Paredes MD [STAFF PHYSICIAN] - 1 Week Patient Instructions/Handouts: Prostatitis (DC), Urinary Tract Infection in Men (DC), Extended Spectrum Beta Lactamase (GEN) Activity/Diet/Wound Care/Special Instructions: Activity: as tolerated Diet: regular Special Instructions: Follow-up with [facility] for IV antibiotics, please call office if any issues arise with PICC line Discharge Disposition: HOME SELF-CARE
[2022-05-28] MEDS: SODIUM CHLORIDE 0.9% 1,000 ML IV SCH (15:47)
--- NOTE | 2022-05-29 11:35 | IR ---
EXAMINATION TYPE: IR cvc insert >=5 years DATE OF EXAM: 05/29/2022 COMPARISON: NONE CLINICAL HISTORY: Infection Needs long-term intravenous access for antibiotics. PROCEDURE: Hand hygiene obtained with soap and water and alcohol-based hand rub. After informed consent, the skin overlying the left basilic vein was localized with ultrasound and no janet to be compressible and patent. An ultrasound image was obtained and submitted on the patient's c cardenas. The overlying skin was prepped and draped and Lidocaine was used for local anesthesia. A skin ranjit was made with a scalpel. Access was gained to the vein under ultrasound guidance with a 21 gau ge needle and a 0.018 inch wire was advanced. Access site was dilated with Peel-Away sheath and cath eter tailored to the appropriate length and advanced such that the distal tip is at the cavoatrial ju nction. Spot image was obtained verifying placement. Catheter was fixed to the skin and a sterile d ressing was placed following hemostasis. Catheter was aspirated and flushed with saline. Patient wa s discharged in stable condition without complication.Maximal barrier technique is utilized. Ultraso und image is documented on the chart. Ultrasound used with sterile technique. Fluoro time and fluoroscopic images submitted to document procedure: 10 intraoperative C-arm images, 0.1 minutes fluoroscopy time IMPRESSION: STATUS POST ULTRASOUND AND FLUOROSCOPIC GUIDED PICC LINE PLACEMENT, READY FOR USE. THIS PROCEDURE WAS PERFORMED BY THE UNDERSIGNED.
== END 2022-05-28 17:39 | disposition home or self-care (01) | DRG 728 ==
LOC: EC 11:48 → 5NMEDONC 14:13
PROVIDERS: ADMIT Internal Medicine; ATTEND Internal Medicine
PROC: B5181ZA Fluoroscopy of Superior Vena Cava using Low Osmolar Contrast, Guidance (ICD-10-PCS; 2022-05-28)
PROC: B548ZZA Ultrasonography of Superior Vena Cava, Guidance (ICD-10-PCS; 2022-05-28)
PROC: 02HV33Z Insertion of Infusion Device into Superior Vena Cava, Percutaneous Approach (ICD-10-PCS; principal; 2022-05-28 15:05)
DX: N41.1 Chronic prostatitis (principal); E87.1 Hypo-osmolality and hyponatremia; Z16.12 Extended spectrum beta lactamase (ESBL) resistance; N12 Tubulo-interstitial nephritis, not specified as acute or chronic; Z20.822 Contact with and (suspected) exposure to COVID-19; N40.1 Benign prostatic hyperplasia with lower urinary tract symptoms; R33.8 Other retention of urine; B96.20 Unspecified Escherichia coli [E. coli] as the cause of diseases classified elsewhere; E66.9 Obesity, unspecified; I10 Essential (primary) hypertension; Z68.36 Body mass index [BMI] 36.0-36.9, adult; Z79.899 Other long term (current) drug therapy; Z96.651 Presence of right artificial knee joint
CPT/HCPCS: 36415; 36573; 74177; 80053; 81001; 83605; 83690; 83735; 85025; 86140; 87077; 87086; 87186; 87636; 96361; 96365; 96366; 96375; 99285

== ENCOUNTER → 2023-05-04 | Day surgery (SDC) | payer OTHER ==
[2023-04-28 14:28] VITALS: BMI 37.4
[~2023-05-04] MED LIST changes: -ACETAMINOPHEN TAB 500 MG TAB PO PRN; +ALPRAZolam 0.25 MG TAB PO PRN; +ALPRAZolam 0.5 MG TAB PO PRN; +ASPIRIN 325 MG TAB PO ONE; +ASPIRIN 81 MG ONE; +ATORVASTATIN 80 MG TAB PO ONE; +HEPARIN SODIUM 1,000 UN/ML (10ML VL) IVP ONE; +HEPARIN SODIUM 1,000 UN/ML (10ML VL) ONE; +HEPARIN SODIUM,PORCINE (1 ML) 2,500 UNIT in SODIUM CHLORIDE 0.9% 250 ML IRRIGATION PRN; +HEPARIN SODIUM,PORCINE 10,000 UNIT in SODIUM CHLORIDE 0.9% 1,000 ML IRRIGATION PRN; +IOPAMIDOL-370 100ML BTL INJ ONE; -LACTATED RINGERS 1,000 ML IV SCH; -LIDOCAINE 1% (10MG/ML) FOR IV START INTRADERMA PRN; +LIDOCAINE 1% INJ 10MG/ML (5 ML VIAL-PF) SQ ONE; -MELOXICAM 7.5 MG TAB PO PRN; +MIDAZOLAM 2 MG/2 ML VIAL IVP ONE; +NITROGLYCERIN SL TABS 0.4 MG TAB SUBLINGUAL PRN; -ONDANSETRON 4 MG/2 ML VIAL IVP PRN; -ROPIVACAINE/EPI/CLONIDINE/KET 50 ML SYRINGE MISCELLANE PRN; +RX INFO: IV CONTRAST WAS GIVEN 1 EACH MISC MISCELLANE PRN; +SODIUM CHLORIDE 0.9% 1,000 ML IV ONE; +SODIUM CHLORIDE 0.9% 1,000 ML IV SCH; +SODIUM CHLORIDE 0.9% 1,000 ML in EMPTY BAG 1 BAG IV SCH; -TRANEXAMIC ACID 1,000 MG in SODIUM CHLORIDE 0.9% 100 ML IVPB PRN; +VERAPAMIL 2.5 MG/ML 2 ML AMP ONE; +VERAPAMIL SYRINGE (5 MG/10 ML) INTRAARTER ONE
--- NOTE | 2023-05-04 10:35 | P.PCN ---
Date of Procedure: 05/04/23 Operative Findings: CARDIAC CATHETERIZATION PERFORMING PHYSICIAN: Earnest Ventura MD, RPVI PROCEDURE PERFORMED: 1. Selective right and left coronary angiogram 2. Left heart catheterization 3. Ultrasound guided access of the right radial artery INDICATION: Chest discomfort and abnormal myocardial perfusion imaging stress test COMPLICATION: None APPROACH: Right radial artery LEVEL OF SEDATION: Moderate with a sedation length of 11 minutes PROCEDURE DESCRIPTION: After obtaining an informed consent, the patient was brought to cardiac bottle labeler. Local anesthesia was performed using lidocaine subcutaneously. The right radial artery was cannulated using Seldinger technique, the guidewire passed easily, following that we advanced a 5-Tristanian sheath dilator assembly, the wire and dilator were removed and sheath was flushed. Following that, 2 mg of verapamil along with 5000 unit heparin were given. Selective right and left coronary angiogram using a 6-Tristanian JR4 and JL 3.5 catheters. Following that we did left heart catheterization using 6-Tristanian pigtail catheter. The procedure was completed there was no complication. SELECTIVE CORONARY ANGIOGRAM: The right coronary artery: Large caliber vessel and a dominant vessel and appears to be angiographically normal Left main: Is angiographically normal. Bifurcates into an LCx and LAD The left circumflex: Large caliber vessel nondominant vessel and angiographically normal. Gives rise into an OM1 which appeared to be angiographically normal and bifurcates into 2 subbranches The left anterior descending artery: Is angiographically normal. Gives rise into a large diagonal branch which appeared to be normal HEMODYNAMICS: The LVEDP was 5 mmHg was no significant gradient across aortic valve CONCLUSION: 1. Normal coronary angiogram 2. Normal left-sided filling pressure POSTPROCEDURE MANAGEMENT: Medical treatment
[2023-05-04 18:48] VITALS: BP 146/71; PULSE 61; RESP 18; TEMP 97.4
== END ==
LOC: CATHCVL 09:07
PROVIDERS: ATTEND Internal Medicine Interventional Cardiology
DX: I25.10 Atherosclerotic heart disease of native coronary artery without angina pectoris (principal); I10 Essential (primary) hypertension; F17.210 Nicotine dependence, cigarettes, uncomplicated; E66.9 Obesity, unspecified; Z68.37 Body mass index [BMI] 37.0-37.9, adult; Z82.49 Family history of ischemic heart disease and other diseases of the circulatory system; Z87.440 Personal history of urinary (tract) infections; Z79.82 Long term (current) use of aspirin; Z79.899 Other long term (current) drug therapy
CPT/HCPCS: 93458; C1769; C1894; J2250; J2001; J1644; Q9967

== ENCOUNTER → 2024-08-12 | Outpatient (CLI) | payer OTHER ==
--- NOTE | 2024-08-12 14:30 | CTL ---
EXAMINATION TYPE: CT Low Dose Lung DATE OF EXAM ORDERED: 08/12/2024 COMPARISON: None. CLINICAL INDICATION: Male, 64 years old with history of Z12.2 LUNG CA SCR Z87.891 FORMER SMOKER; PHH, former smoker, Lung cancer screening, History of Smoking/tobacco use. TECHNIQUE: Low dose computed tomography scan was performed through the chest at 1 mm thick sections a nd reconstructed images in multiple planes at 1 mm and [address] DLP: 167.[address] CTDI: 4.3 mGy Automated exposure control for dose reduction was used. CT DIAGNOSTIC QUALITY: Satisfactory FINDINGS: Nodules: RUL: None. RML: None. RLL: None. DIANNE: None. LLL: None. LUNGS: COPD: Severity: None Fibrosis: Severity: None Lymph nodes: None Other findings: None RIGHT PLEURAL SPACE: Effusion: None Calcification: None Thickening: None Pneumothorax: None LEFT PLEURAL SPACE: Effusion: None Calcification: None Thickening: None Pneumothorax: None HEART: Heart Size: Normal Coronary Calcification: None Pericardial Effusion: None OTHER FINDINGS: Upper abdomen: None Bony thorax: None Supraclavicular region: None Other: Small amount of right greater than left subareolar flame-shaped gynecomastia is present IMPRESSION: No suspicious pulmonary nodules. CT LUNG RAD AND CT CHEST RECOMMENDATION: Lung-Rad 1 Negative: Continue annual screening with LDCT in 12 months. S Modifier (other clinically significant findings): None [facility], Workstation: [employer], 08/12/2024 2:27 PM
== END | disposition home or self-care (01) ==
LOC: RADCTMAIN 10:29
PROVIDERS: ATTEND Family Medicine
DX: Z12.2 Encounter for screening for malignant neoplasm of respiratory organs (principal); Z87.891 Personal history of nicotine dependence
CPT/HCPCS: 71271

== ENCOUNTER → 2024-08-30 | Outpatient (CLI) | payer OTHER ==
--- NOTE | 2024-08-30 17:02 | CT ---
CT urogram. HISTORY: Gross hematuria. COMPARISON: CT abdomen and pelvis dated 05/26/2022. TECHNIQUE: Multiple axial images were obtained through the abdomen and pelvis before and after the un eventful administration of nonionic IV contrast. Postcontrast delayed images were obtained as well. FINDINGS: Lung bases are clear. On the pre-IV contrast images, there are no renal calcifications or ureteral calcifications. There a re no gallstones. The gallbladder is normal and there is no distention or biliary ductal dilatation. There are no focal masses within the liver, pancreas, spleen or adrenal glands and there is no organo megaly. Kidneys excrete contrast promptly and symmetrically and there is no solid renal mass, hydronephrosis or filling defect within the renal collecting systems, ureters or urinary bladder. There is stable mo derate prostatic hypertrophy. The median lobe projects into the urinary bladder base. The bowel loops are normal in caliber and there is no dilatation or obstruction. No inflammatory huddleston ges are identified in the bowel wall or mesentery. There is no free intraperitoneal air or fluid. There is no pelvic mass, free fluid, abscess or adenopathy. There is a grade 1 anterolisthesis of L5 on S1. There is advanced degenerative disc disease at the L2 -3 and L5-S1 levels IMPRESSION: 1. No renal calcification, solid renal mass, hydronephrosis or filling defect within the renal collec ting systems, ureter or bladder. 2. Moderate prosthetic hypertrophy with projection of the median lobe into the bladder base. [facility], , 08/30/2024 4:59 PM
== END | disposition home or self-care (01) ==
LOC: RADCTMAIN 14:06
PROVIDERS: ATTEND Urology
DX: R31.0 Gross hematuria (principal); N32.89 Other specified disorders of bladder
CPT/HCPCS: 74178; 74400; Q9967

== ENCOUNTER 2024-10-09 13:23 | Emergency (ER) | payer OTHER ==
[2024-10-09 13:38] VITALS: TEMP 97.6
[2024-10-09] MEDS: LIDOCAINE 1%-EPI 1:100,000 20 ML VIAL SQ STA (14:18)
[2024-10-09] MEDS: KETOROLAC 15 MG/ML 1 ML VIAL IM STA (14:19)
[2024-10-09] MEDS: HYDROmorphone 0.5 MG/0.5 ML SYRINGE IM STA (14:20)
--- NOTE | 2024-10-09 14:32 | XR ---
EXAMINATION TYPE: XR knee complete RT DATE OF EXAM: 10/09/2024 2:28 PM COMPARISON: Previous radiograph 09/24/2020. CLINICAL INDICATION: Male, 64 years old with history of Fall, inferior knee laceration, TTP; PHH, martha n TECHNIQUE: XR knee complete RT views submitted.. FINDINGS: No acute fracture or dislocation. Right knee arthroplasty without periprosthetic lucency or other acute hardware abnormality identified. Small suprapatellar joint effusion. IMPRESSION: No acute fracture or dislocation in the right knee. Radiopacity without evidence of acute hardware co mplication. [facility], , 10/09/2024 2:29 PM
--- NOTE | 2024-10-09 15:57 | ED ---
Wound/Laceration HPI - General Chief Complaint: Wound/Laceration Stated Complaint: right knee injury Time Seen by Provider: 10/09/24 13:33 Source: patient, RN notes reviewed Mode of arrival: ambulatory Limitations: no limitations - History of Present Illness Onset/Timin -: hour(s) Time: 12:15 Extremity Location: Right: Knee Place: outdoors Patient Tetanus UTD: Yes Context: accidental, fall Associated Symptoms: pain - Related Data Home Medications Medication Instructions Recorded Confirmed Lisinopril-Hctz 20-12.5 mg 1 tab PO DAILY 09/18/20 05/04/23 [Zestoretic 20-12.5] Travoprost [Travatan Z 0.004%] 1 drop BOTH EYES HS 09/18/20 05/04/23 Ascorbic Acid [Vitamin C] 1,000 mg PO DAILY 05/25/22 04/28/23 Cinnamon Bark [Cinnamon] 500 mg PO DAILY 05/25/22 04/28/23 Aspirin 81 mg PO DAILY 04/28/23 05/04/23 Previous Rx's Medication Instructions Recorded Cephalexin [Keflex] 500 mg PO Q6HR 1 Days #20 cap 10/09/24 Allergies Allergy/AdvReac Type Severity Reaction Status Date / Time No Known Allergies Allergy Verified 04/28/23 14:19 Review of Systems ROS Statement: Those systems with pertinent positive or pertinent negative responses have been documented in the HPI. ROS Other: All systems not noted in ROS Statement are negative. Past Medical History Past Medical History: Hypertension Additional Past Medical History / Comment(s): having SOB and chest pain, recent abn stress test, has been having elevated blood sugars-fast blood sugar in am 120-125, hx uti that led to prostate infection 2021 History of Any Multi-Drug Resistant Organisms: ESBL Date of last positivie culture/infection: 05/25/22 ESBL E.coli MDRO Source:: Urine Past Surgical History: Orthopedic Surgery Additional Past Surgical History / Comment(s): Right total knee replacement, colonoscopies Past Anesthesia/Blood Transfusion Reactions: No Reported Reaction Additional Past Anesthesia/Blood Transfusion Reaction / Comment(s): no hx blood transfusion Past Psychological History: No Psychological Hx Reported Smoking Status: Never smoker Past Alcohol Use History: None Reported Past Drug Use History: None Reported - Past Family History Father Family Medical History: Diabetes Mellitus, Myocardial Infarction ([place]) Additional Family Medical History / Comment(s): Father is Mother Additional Family Medical History / Comment(s): Parkinson's General Exam Limitations: no limitations General appearance: alert, in no apparent distress Head exam: Present: atraumatic, normocephalic, normal inspection Eye exam: Present: normal appearance, PERRL, EOMI. Absent: scleral icterus, conjunctival injection, periorbital swelling ENT exam: Present: normal exam, mucous membranes moist Neck exam: Present: normal inspection. Absent: tenderness, meningismus, lymphadenopathy Respiratory exam: Present: normal lung sounds bilaterally. Absent: respiratory distress, wheezes, rales, rhonchi, stridor Cardiovascular Exam: Present: regular rate, normal rhythm, normal heart sounds. Absent: systolic murmur, diastolic murmur, rubs, gallop, clicks GI/Abdominal exam: Present: soft, normal bowel sounds. Absent: distended, tenderness, guarding, rebound, rigid Extremities exam: Present: normal inspection, full ROM, normal capillary refill. Absent: tenderness, pedal edema, joint swelling, calf tenderness Right Hip exam: Present: normal inspection, full ROM Upper Leg exam: Present: normal inspection, full ROM Knee exam: Present: full ROM, tenderness (Positive tenderness surrounding laceration), laceration (5 cm horizontal laceration on distal aspect of left knee across tibial plateau without obvious foreign body or significant bleeding), full knee extension. Absent: ecchymosis, deformity, crepitus, dislocation, erythema Back exam: Present: normal inspection Neurological exam: Present: alert, oriented X3, CN II-XII intact Psychiatric exam: Present: normal affect, normal mood Skin exam: Present: warm, dry, intact, normal color. Absent: rash Course Vital Signs 10/09/24 13:36 Temperature 97.6 F Pulse Rate 81 Respiratory 18 Rate Blood Pressure 126/82 O2 Sat by Pulse 96 Oximetry Medical Decision Making - Medical Decision Making Was pt. sent in by a medical professional or institution (MIKE Will, WORKS MANAGER, urgent care, hospital, or longterm...) When possible be specific @ -[No] Did you speak to anyone other than the patient for history (EMS, parent, family, police, friend...)? What history was obtained from this source @ -[No] Did you review nursing and triage notes (agree or disagree)? Why? @ -[I reviewed and agree with nursing and triage notes] Were old charts reviewed (outside hosp., previous admission, EMS record, old EKG, old radiological studies, urgent care reports/EKG's, longterm records)? Report findings @ -[No old charts were reviewed] Differential Diagnosis (chest pain, altered mental status, abdominal pain women, abdominal pain men, vaginal bleeding, weakness, fever, dyspnea, syncope, headache, dizziness, GI bleed, back pain, seizure, CVA, palpatations, mental health, musculoskeletal)? @ -Differential Musculoskeletal Muscular strain, contusion, ligament sprain, fracture, arthritis, septic arthritis, bursitis, cellulitis, muscle spasm, nerve compression, DVT, arterial occlusion, herpes zoster, electrolyte abnormality, tumor.... This is not meant to be in all inclusive list EKG interpreted by me (3pts min.). @ -Not done X-rays interpreted by me (1pt min.). @ -[None done] CT interpreted by me (1pt min.). @ -[None done] U/S interpreted by me (1pt. min.). @ -[None done] What testing was considered but not performed or refused? (CT, X-rays, U/S, labs)? Why? @ -[None] What meds were considered but not given or refused? Why? @ -[None] Did you discuss the management of the patient with other professionals (professionals i.e. , PA, WORKS MANAGER, lab, RT, psych nurse, social scientist, ingredient handler, teacher, ground intelligence officer, residential case manager)? Give summary @ -[No] Was smoking cessation discussed for >3mins.? @ -[No] Was critical care preformed (if so, how long)? @ -[No] Were there social determinants of health that impacted care today? How? (Homelessness, low income, unemployed, alcoholism, drug addiction, transportation, low edu. Level, literacy, decrease access to med. care, usp, rehab)? @ -[No] Was there de-escalation of care discussed even if they declined (Discuss DNR or withdrawal of care, Hospice)? DNR status @ -[No] What co-morbidities impacted this encounter? (DM, HTN, Smoking, COPD, CAD, Cancer, CVA, ARF, Chemo, Hep., AIDS, mental health diagnosis, sleep apnea, morbid obesity)? @ -[None] Was patient admitted / discharged? Hospital course, mention meds given and route, prescriptions, significant lab abnormalities, going to OR and other pertinent info. @ -[hospital course] Undiagnosed new problem with uncertain prognosis? @ -[No] Drug Therapy requiring intensive monitoring for toxicity (Heparin, Nitro, Insulin, Cardizem)? @ -[No] Were any procedures done? @ -[No] Diagnosis/symptom? @ -[default] Acute, or Chronic, or Acute on Chronic? @ -Acute Uncomplicated (without systemic symptoms) or Complicated (systemic symptoms)? @ -Uncomplicated Side effects of treatment? @ -[No] Exacerbation, Progression, or Severe Exacerbation? @ -[No] Poses a threat to life or bodily function? How? (Chest pain, [place], [place], pneumonia, PE, COPD, DKA, ARF, appy, cholecystitis, CVA, Diverticulitis, Homicidal, Suicidal, threat to staff... and all critical care pts) @ -[No] Disposition Clinical Impression: Laceration Disposition: HOME SELF-CARE Condition: Good Instructions (If sedation given, give patient instructions): Care For Your Stitches (ED) Additional Instructions: Keep laceration clean with antibacterial soap and water at least twice daily with dressing change. Keep knee immobilizer applied to prevent stretching of sutures. Follow-up with PCP in the next 24-48 hours. Prescriptions: Cephalexin [Keflex] 500 mg PO Q6HR 1 Days #20 cap Is patient prescribed a controlled substance at d/c from ED?: No Referrals: Garfield Moss MD [Primary Care Provider] - 1-2 days Time of Disposition: 15:58
[2024-10-09] MEDS: CEPHALEXIN 500 MG CAP PO STA (16:08)
[2024-10-09 16:21] VITALS: BP 122/82; PULSE 80; RESP 16
== END 2024-10-09 16:18 | disposition home or self-care (01) ==
LOC: EC 13:23
DX: S81.012A Laceration without foreign body, left knee, initial encounter (principal); W19.XXXA Unspecified fall, initial encounter; Y92.89 Other specified places as the place of occurrence of the external cause
CPT/HCPCS: 99283 ×2; 96372 ×2; 73562; J1885; J1171